=== PATIENT | male | born 1955 ===

== ENCOUNTER 2016-11-21 19:09 | Emergency (ER) | payer BC ==
[2016-11-21] MEDS ORDERED: Dextrose 50% SYRINGE Inj (50 ml) ONE (19:38)
--- NOTE | 2016-11-21 19:48 | C.PDOC ---
History Of Present Illness A 61 y/o male with a Hx of chronic alcoholism, was brought in by family c/o pt feeling weakness due to ETOH, Xanax, and Percocet intake with slurred speech that began tonight. Pt notes his last drug use was tonight. Pt denies pain, fever, chills, nausea, vomiting, diarrhea, chest pain, SOB, diaphoresis, LOC, dizziness, suicidal, or homicidal ideation. Time Seen by Provider: 11/21/16 19:49 Chief Complaint (Nursing): Weakness/Neurological Deficit History Per: Patient, Family History/Exam Limitations: intoxication Onset/Duration Of Symptoms: Hrs Current Symptoms Are (Timing): Still Present Fall Associated With With Symptoms: No Severity: Mild Recent travel outside of the [place]: No Additional History Per: Patient Past Medical History Reviewed: Historical Data, Nursing Documentation, Vital Signs Vital Signs: Last Vital Signs Temp 97.5 F L 11/21/16 19:44 Pulse 106 H 11/21/16 21:31 Resp 12 11/21/16 21:31 BP 163/94 H 11/21/16 21:31 Pulse Ox 95 11/21/16 21:31 Family History: States: Unknown Family Hx Review Of Systems Except As Marked, All Systems Reviewed And Found Negative. Constitutional: Positive for: Weakness, Other ( ETOH, Xanax, and percocet use. Denies pain). Negative for: Fever, Chills, Sweats Cardiovascular: Negative for: Chest Pain, Palpitations Respiratory: Negative for: Shortness of Breath Gastrointestinal: Negative for: Nausea, Vomiting, Diarrhea Neurological: Negative for: Dizziness, Other (LOC) Psych: Negative for: Suicidal ideation, Other (Homicidal ideation) Physical Exam - Physical Exam Appears: Non-toxic, No Acute Distress, Other (Alert and concious) Skin: Warm, Dry Head: Atraumatic, Normacephalic Eye(s): bilateral: Normal Inspection Chest: Symmetrical Cardiovascular: Rhythm Regular, No Murmur Respiratory: Normal Breath Sounds, No Accessory Muscle Use, No Rales, No Rhonchi , No Wheezing Gastrointestinal/Abdominal: Soft, No Tenderness Back: Normal Inspection, No CVA Tenderness Neurological/Psych: No Normal Speech (Slightly slurred speech), Normal Motor, Normal Sensation, Other (No focal deficit) ED Course And Treatment - Laboratory Results Result Diagrams: 11/21/16 20:00 11/21/16 20:00 ECG: Interpreted By Me, Viewed By Me ECG Rhythm: Sinus Tachycardia, Nonspecific Changes ECG Interpretation: No Acute Changes, Abnormal Interpretation Of ECG: Sinus tachycardia, non-spc ST-T changes Rate From EC - Radiology CXR: Interpreted by Me, Viewed By Me CXR Interpretation: Yes: No Acute Disease, Other (normal chest film). No: Infiltrates, Cardiomegaly - CT Scan/US CT Head w/o contrast Other Rad Studies (CT/US): Interpreted By Me, Read By Radiologist CT/US Interpretation: EXAM: CT Head Without Intravenous Contrast. CLINICAL HISTORY: 61 years old, male; Signs and symptoms; Weakness, facial. TECHNIQUE: Axial computed tomography images of the head/brain without intravenous contrast. This CT exam. was performed using one or more of the following dose reduction techniques: automated exposure. control, adjustment of the mA and/or kV according to patient size, and/or use of iterative. reconstruction technique. EXAM DATE/TIME: Exam ordered 11/21/2016 8:05 PM. COMPARISON: No relevant prior studies available. FINDINGS: Brain: A thin calcification is noted over a left temporal gyrus. This is nonspecific and could be related. to previous granulomatous disease. No hemorrhage. No significant white matter disease. No. edema. Ventricles: Unremarkable. No ventriculomegaly. Bones/ joints: Unremarkable. No acute fracture. Soft tissues: Unremarkable. Sinuses: Mucosal thickening is noted within the right maxillary sinus. Mastoid air cells : Unremarkable as visualized. No mastoid effusion. IMPRESSION: 1. No acute findings in the brain. 2. Mucosal thickening within the right maxillary sinus. Progress Note: Patient initial bld. glucose was 59mg %, D50 given by Iv. Medical Decision Making Medical Decision Making: Impression: A 61 y/o male brought in by family c/o pt feeling weakness due to ETOH, Xanax, and Percocet intake with slurred speech that began tonight. Plans: EKG Blood labs UA Reassess Disposition Counseled Patient/Family Regarding: Diagnosis - Disposition Referrals: [facility] [Outside] Disposition Time: 22:00 Condition: STABLE Instructions: Non-diabetic Hypoglycemia (ED), Alcohol Intoxication (GEN), Abuse of Alcohol (ED) - POA Present On Arrival: None - Clinical Impression Clinical Impression: Alcohol intoxication, Hypoglycemia - Scribe Statement The provider has reviewed the documentation as recorded by the Eduardoibgm torres Provider Attestation: All medical record entries made by the Eduardoibgm were at my direction and personally dictated by me. I have reviewed the chart and agree that the record accurately reflects my personal performance of the history, physical exam, medical decision making, and the department course for this patient. I have also personally directed, reviewed, and agree with the discharge instructions and disposition.
[2016-11-21 19:50] VITALS: RESP 12; TEMP 97.5
[2016-11-21] MEDS ORDERED: Dextrose 50% SYRINGE Inj (50 ml) IV STA (19:53)
[2016-11-21] MEDS ORDERED: Folic Acid 1 MG, Thiamine 100 MG, Multivitamin (MVI) 10 ML in Dextrose 5% In Water 1,00... IV SCH ×2 (20:00→20:15)
[2016-11-21 20:11] LABS: BASO # 0.1 K/uL (0.0-0.2); BASO % 0.8 % (0.0-2.0); EOS % 0.1 % (0.0-4.0); HEMATOCRIT 40.7 % (35.0-51.0); LYMPH % 24.5 % (20.0-40.0); MEAN CELL VOLUME 89.2 fL (80.0-94.0); MEAN CORPUSCULAR HEMOGLOBIN 29.1 pg (27.0-31.0); MEAN CORPUSCULAR HGB CONC 32.6 g/dL (33.0-37.0); MEAN PLATELET VOLUME 7.4 fL (7.2-11.7); MONO # 0.5 K/uL (0.0-0.8); MONO % 6.1 % (0.0-10.0); NRBC % 0.1 % (0.0-2.0); RED CELL DISTRIBUTION WIDTH 22.3 % (11.5-14.5)
[2016-11-21 20:17] LABS: CHLORIDE 99 mmol/L (98-107)
[2016-11-21 20:18] LABS: SODIUM 137 mmol/L (132-148)
[2016-11-21 20:19] LABS: POTASSIUM 4.1 mmol/L (3.6-5.2)
[2016-11-21 20:20] LABS: BILIRUBIN,TOTAL 1.4 mg/dL (0.2-1.3); GFR AFRICAN-AMERICAN > 60
[2016-11-21 20:21] LABS: ALB/GLOB RATIO 1.4 (1.0-2.1); ALKALINE PHOSPHATASE 200 U/L (38-126); ALT/SGPT 99 U/L (21-72); AST/SGOT 197 U/L (17-59); BLOOD UREA NITROGEN 11 mg/dL (9-20); CALCIUM 8.2 mg/dl (8.6-10.4); CARBON DIOXIDE 15 mmol/L (22-30); GLUCOSE,RANDOM 69 mg/dL (75-110); TOTAL PROTEIN 7.3 g/dL (6.3-8.3)
[2016-11-21 20:22] LABS: ALCOHOL SERUM 289 mg/dl (0-10)
[2016-11-21 20:27] LABS: RBC URINE 3 /hpf (0-3); URINE BILIRUBIN NEGATIVE (NEGATIVE); URINE BLOOD 1+ (NEGATIVE); URINE GLUCOSE (UA) 3+ mg/dL (Normal); URINE KETONE 2+ mg/dL (NEGATIVE); URINE LEUKOCYTE ESTERASE NEG Leu/uL (Negative); URINE PROTEIN 1+ mg/dL (NEGATIVE); WBC URINE 1 /hpf (0-5)
[2016-11-21 20:29] LABS: URINE COLOR YELLOW (YELLOW)
--- NOTE | 2016-11-21 21:31 | CT ---
EXAM: CT Head Without Intravenous Contrast CLINICAL HISTORY: 61 years old, male; Signs and symptoms; Weakness, facial TECHNIQUE: Axial computed tomography images of the head/brain without intravenous contrast. This CT exam was performed using one or more of the following dose reduction techniques: automated exposure control, adjustment of the mA and/or kV according to patient size, and/or use of iterative reconstruction technique. EXAM DATE/TIME: Exam ordered 11/21/2016 8:05 PM COMPARISON: No relevant prior studies available. FINDINGS: Brain: A thin calcification is noted over a left temporal gyrus. This is nonspecific and could be related to previous granulomatous disease. No hemorrhage. No significant white matter disease. No edema. Ventricles: Unremarkable. No ventriculomegaly. Bones/joints: Unremarkable. No acute fracture. Soft tissues: Unremarkable. Sinuses: Mucosal thickening is noted within the right maxillary sinus. Mastoid air cells: Unremarkable as visualized. No mastoid effusion. IMPRESSION: 1. No acute findings in the brain. 2. Mucosal thickening within the right maxillary sinus.
[2016-11-21 21:33] VITALS: BP 163/94; PULSE 106; O2SAT 95
--- NOTE | 2016-11-22 09:14 | RAD ---
HISTORY: weakness COMPARISON: No prior. TECHNIQUE: Chest PA and lateral FINDINGS: LUNGS: Hyperinflation suggestive for COPD and or emphysematous changes. Biapical pleural thickening with upper lobe granulomatous changes. Bilateral hilar prominence. Patchy increased markings in the right infrahilar region which may represent underlying atelectasis and or infiltrate. More linear atelectasis at the right lung base. PLEURA: As above. CARDIOVASCULAR: Mild cardiomegaly. OSSEOUS STRUCTURES: Degenerative changes in the spine and shoulders. VISUALIZED UPPER ABDOMEN: Normal. OTHER FINDINGS: None. IMPRESSION: Hyperinflation suggestive for COPD and or emphysematous changes. Biapical pleural thickening with upper lobe granulomatous changes. Bilateral hilar prominence. Patchy increased markings in the right infrahilar region which may represent underlying atelectasis and or infiltrate. More linear atelectasis at the right lung base.
--- NOTE | 2016-11-22 19:22 | CARD ---
APPROVED REPORT EKG Measurement Heart [id number] <Conclusion> Sinus tachycardia Low voltage QRS Nonspecific ST and T wave abnormality Abnormal ECG
== END 2016-11-21 21:59 | disposition home or self-care (01) ==
LOC: C.ER 19:09
DX: F10.220 Alcohol dependence with intoxication, uncomplicated (principal); F19.10 Other psychoactive substance abuse, uncomplicated; Y90.8 Blood alcohol level of 240 mg/100 ml or more; E16.2 Hypoglycemia, unspecified
CPT/HCPCS: 70450; 71020; 80053; 81001; 82948; 84484; 85025; 93005; 96360; 99285; G0480; J3411; J7070

== ENCOUNTER 2017-09-05 16:36 | Inpatient (IN) | payer BC ==
[2017-09-05] MEDS ORDERED: Albuterol-Ipratrop 3 mg / 0.5 (3 ml) UD IH STA (17:12)
[2017-09-05 17:41] LABS: BASO # 0.1 K/uL (0.0-0.2); BASO % 1.1 % (0.0-2.0); EOS # 0.1 K/uL (0.0-0.7); EOS % 0.8 % (0.0-4.0); HEMOGLOBIN 11.5 g/dL (12.0-18.0); LYMPH # 1.7 K/uL (1.0-4.3); LYMPH % 16.7 % (20.0-40.0); MEAN CORPUSCULAR HEMOGLOBIN 24.3 pg (27.0-31.0); MEAN CORPUSCULAR HGB CONC 31.9 g/dL (33.0-37.0); MEAN PLATELET VOLUME 7.2 fL (7.2-11.7); MONO # 0.8 K/uL (0.0-0.8); MONO % 7.6 % (0.0-10.0); NEUT # 7.5 K/uL (1.8-7.0); NEUT % 73.8 % (50.0-75.0); RBC 4.73 Mil/uL (4.40-5.90); RED CELL DISTRIBUTION WIDTH 17.7 % (11.5-14.5); WHITE BLOOD COUNT 10.2 K/uL (4.8-10.8)
[2017-09-05] MEDS ORDERED: Albuterol-Ipratrop 3 mg / 0.5 (3 ml) UD ONE (17:49)
[2017-09-05 17:53] LABS: ALB/GLOB RATIO 1.1 (1.0-2.1); ALBUMIN 3.9 g/dL (3.5-5.0); ALT/SGPT 72 U/L (21-72); AST/SGOT 61 U/L (17-59); BLOOD UREA NITROGEN 13 mg/dL (9-20); CALCIUM 8.7 mg/dl (8.6-10.4); GFR AFRICAN-AMERICAN > 60; GFR NON-AFRICAN AMERICAN > 60
[2017-09-05 17:54] LABS: MEAN CELL VOLUME 76.2 fL (80.0-94.0)
[2017-09-05 18:07] LABS: B-TYPE NATRIURETIC PEPTIDE 63.3 pg/mL (0-900)
--- NOTE | 2017-09-05 18:24 | RAD ---
HISTORY: SOB, cough COMPARISON: Chest radiograph 11/21/2016. TECHNIQUE: Chest PA and lateral FINDINGS: LUNGS: No active pulmonary disease right lung. Underlying compression atelectasis or infiltrate is not excluded at the left lung. PLEURA: There is a massive left pleural effusion opacifying the majority of the left hemithorax except for the immediate left apex. No pneumothorax bilaterally or right pleural effusion. CARDIOVASCULAR: Obscured by left pleural effusion. OSSEOUS STRUCTURES: No significant abnormalities. VISUALIZED UPPER ABDOMEN: Normal. OTHER FINDINGS: None. IMPRESSION: Massive left pleural effusion is identified with underlying atelectasis or infiltrate not excluded. Unremarkable right hemithorax.
[2017-09-05] MEDS ORDERED: Azithromycin 500mg/250ML NS 500 MG/250 ML BAG IVPB STA (18:39)
[2017-09-05] MEDS ORDERED: cefTRIAXone IV 1 gm in Dextros 50 ML IVPB STA (18:39)
--- NOTE | 2017-09-05 19:00 | C.PDOC ---
Time Seen by Provider: 09/05/17 17:02 Chief Complaint (Nursing): Shortness Of Breath History Per: Patient Onset/Duration Of Symptoms: Days (weeks) Current Symptoms Are (Timing): Worse Exacerbating Factor(s): Exertion Current Respiratory Medications: See Home Med List Severity: Moderate Associated Symptoms: Productive Cough Reports Recently: Treated By A Physician Additional History Per: Prior Records Past Medical History Reviewed: Historical Data, Nursing Documentation, Vital Signs Vital Signs: Last Vital Signs Temp 97.9 F 09/05/17 16:45 Pulse 102 H 09/05/17 16:45 Resp 24 09/05/17 17:51 BP 160/102 H 09/05/17 16:45 Pulse Ox 96 09/05/17 16:45 - Medical History PMH: Back Problems (slipped disc), COPD Family History: States: Unknown Family Hx - Social History Hx Tobacco Use: Yes Hx Alcohol Use: Yes Hx Substance Use: No - Immunization History Hx Tetanus Toxoid Vaccination: No Hx Influenza Vaccination: No Hx Pneumococcal Vaccination: No Review Of Systems Except As Marked, All Systems Reviewed And Found Negative. Constitutional: Negative for: Fever Respiratory: Positive for: Cough, Shortness of Breath, SOB with Excertion. Negative for: Hemoptysis Gastrointestinal: Negative for: Vomiting, Abdominal Pain Musculoskeletal: Negative for: Neck Pain Skin: Negative for: Rash Neurological: Negative for: Weakness, Numbness Physical Exam - Physical Exam Appears: Non-toxic, No Acute Distress Skin: Normal Color, Warm, Dry, No Rash Head: Atraumatic, Normacephalic Eye(s): bilateral: Normal Inspection, PERRL, EOMI Neck: Normal ROM, Supple Cardiovascular: Rhythm Regular Respiratory: Decreased Breath Sounds (on left side), No Accessory Muscle Use Gastrointestinal/Abdominal: Soft, No Tenderness Extremity: Normal ROM, No Pedal Edema, No Calf Tenderness Neurological/Psych: Oriented x3, Normal Speech, Normal Motor, Normal Sensation ED Course And Treatment - Laboratory Results Result Diagrams: 09/05/17 17:34 09/05/17 17:34 Lab Interpretation: No Acute Changes ECG: Interpreted By Me, Viewed By Me ECG Rhythm: Sinus Rhythm, Nonspecific Changes ECG Interpretation: No Acute Changes Rate From EC O2 Sat by Pulse Oximetry: 96 Pulse Ox Interpretation: Normal - Radiology CXR: Viewed By Me, Read By Radiologist CXR Interpretation: Yes: Other (Large left sided pleural effusion) Progress - Interventions Interventions:: Observation, Oxygen - Medications Administered Inhaled nebulized: Anticholinergic, Beta-2 agonist Intravenous: Corticosteroid - Data Reviewed Data Reviewed: Lab, Diagnostic imaging, EKG, Old records - Patient Status Patient status: Unchanged - Continuity of Care Discussed patient case with:: Patient, ED Nurse, On-call PMD-pt unassigned - Patient Plan Patient Plan: Admission Disposition Discussed With DrTy: Cadence Galindo Comment: He accepted pt on his service. Doctor Will See Patient In The: Hospital Counseled Patient/Family Regarding: Studies Performed, Diagnosis, Smoking Cessation - Disposition Disposition: HOSPITALIZED Disposition Time: 19:02 Condition: SERIOUS - Clinical Impression Clinical Impression: Pleural effusion on left, Dyspnea
--- NOTE | 2017-09-05 21:39 | CP.PCM.HP ---
Past Patient History - Past Social History Smoking Status: Heavy Smoker > 10 Cigarettes Daily - PULMONARY Hx Chronic Obstructive Pulmonary Disease (COPD): Yes - PSYCHIATRIC Hx Substance Use: No - SURGICAL HISTORY Hx Surgeries: Yes Hx Orthopedic Surgery: Yes (Lt elbow) - ANESTHESIA Hx Anesthesia: Yes Hx Anesthesia Reactions: No Meds Allergies/Adverse Reactions: Allergies Allergy/AdvReac Type Severity Reaction Status Date / Time No Known Allergies Allergy Verified 09/05/17 16:49 Physical Exam - Constitutional Appears: Well - Head Exam Head Exam: ATRAUMATIC, NORMAL INSPECTION, NORMOCEPHALIC - Eye Exam Eye Exam: EOMI, Normal appearance, PERRL Pupil Exam: NORMAL ACCOMODATION, PERRL - ENT Exam ENT Exam: Mucous Membranes Moist, Normal Exam - Neck Exam Neck exam: Positive for: Normal Inspection - Respiratory Exam Respiratory Exam: Decreased Breath Sounds - Cardiovascular Exam Cardiovascular Exam: REGULAR RHYTHM, +S1, +S2 - GI/Abdominal Exam GI & Abdominal Exam: Diminished Bowel Sounds, Soft - Rectal Exam Rectal Exam: Deferred Results - Vital Signs Recent Vital Signs: Last Vital Signs Temp 97.9 F 09/05/17 16:45 Pulse 102 H 09/05/17 16:45 Resp 24 09/05/17 17:51 BP 160/102 H 09/05/17 16:45 Pulse Ox 96 09/05/17 19:02 - Labs Result Diagrams: 09/05/17 17:34 09/05/17 17:34 Labs: Laboratory Results - last 24 hr 09/05/17 09/05/17 17:34 17:34 WBC 10.2 RBC 4.73 Hgb 11.5 L Hct 36.1 MCV 76.2 L D MCH 24.3 L MCHC 31.9 L RDW 17.7 H Plt Count 469 H D MPV 7.2 Neut % (Auto) 73.8 Lymph % (Auto) 16.7 L [place] % (Auto) 7.6 Eos % (Auto) 0.8 Baso % (Auto) 1.1 Neut # (Auto) 7.5 H Lymph # (Auto) 1.7 [place] # (Auto) 0.8 Eos # (Auto) 0.1 Baso # (Auto) 0.1 Sodium 138 Potassium 4.0 Chloride 100 Carbon Dioxide 24 Anion Gap 19 BUN 13 Creatinine 0.8 Est GFR ( Amer) > 60 Est GFR (Non-Af Amer) > 60 Random Glucose 103 Calcium 8.7 Total Bilirubin 0.6 AST 61 H ALT 72 D Alkaline Phosphatase 118 Troponin I < 0.0120 NT-Pro-B Natriuret Pep 63.3 Total Protein 7.5 Albumin 3.9 Globulin 3.6 Albumin/Globulin Ratio 1.1
[2017-09-05] MEDS ORDERED: PERCOCET PO SCH (22:00)
[2017-09-05] MEDS: MethylPREDNISolone 40 mg Vial IVP SCH (22:11)
[2017-09-05] MEDS ORDERED: cefTRIAXone IV 1 gm in Dextros 50 ML IVPB ONE (22:13)
[2017-09-05] MEDS ORDERED: MethylPREDNISolone 40 mg Vial ONE (22:15)
--- NOTE | 2017-09-05 23:11 | CT ---
EXAM: CT Chest Without Intravenous Contrast EXAM DATE/TIME: 09/05/2017 9:38 PM CLINICAL HISTORY: 61 years old, male; Condition or disease; Lung condition and disease; Pleural effusion; Other: Unknown; Additional info: Large left pleural effusion TECHNIQUE: Axial computed tomography images of the chest without intravenous contrast. All CT scans at this facility use one or more dose reduction techniques, viz.: automated exposure control; ma/kV adjustment per patient size (including targeted exams where dose is matched to indication; i.e. head); or iterative reconstruction technique. Coronal and sagittal reformatted images were created and reviewed. COMPARISON: No relevant prior studies available. FINDINGS: There is a large left pleural effusion some of which has a rounded configuration raising the possibility of partial loculation. There is consolidation along the medial left lung with only a small amount of normally aerated lung present in the upper and lower lobes. Intraluminal material is present in the left main bronchi on coronal images 78-79 as well as more distally, presumably the etiology of the consolidation/atelectasis. Bronchoscopy could be performed for further evaluation. No aortic aneurysm. Minimal platelike atelectasis right upper lung. Emphysematous changes are present. There is left adrenal gland thickening. Trace bilateral nonspecific perinephric stranding. IMPRESSION: Large left pleural effusion. Consolidation/atelectasis in the left lung with endobronchial material in the left main bronchi as well as in the distal bronchioles, presumably the etiology. Bronchoscopy recommended for further evaluation.
[2017-09-06] MEDS: Albuterol-Ipratrop 3 mg / 0.5 (3 ml) UD INH SCH ×4 (05:56→19:05)
[2017-09-06] MEDS: MethylPREDNISolone 40 mg Vial IVP SCH ×3 (06:05→22:59)
[2017-09-06] MEDS ORDERED: Oxycodone/Acetaminophen 5/325 mg Tab PO PRN ×2 (09:30→15:00)
[2017-09-06 11:16] LABS: PROTHROMBIN TIME 11.7 SECONDS (9.7-12.2)
--- NOTE | 2017-09-06 12:16 | PCM.SURG1 ---
Surgeon's Initial Post Op Note - Surgeon's Notes Surgeon: Kenny Rosado MD Limited Radiology Technician: None Type of Anesthesia: Local Pre-Operative Diagnosis: sob, pleural effusion Operative Findings: large left pleural effusion. 8.5 palauan pigtail chest tube placed in left pleural space Post-Operative Diagnosis: same Operation Performed: US guided left pigtail chest tube insertion Specimen/Specimens Removed: 60 cc serosanguinous (dark red) fluid Estimated Blood Loss: EBL {In ML}: 3 Date of Surgery/Procedure: 09/06/17 Time of Surgery/Procedure: 12:16
[2017-09-06] MEDS ORDERED: Morphine 4 MG/ML VIAL IVP ONE ×2 (12:48→19:30)
[2017-09-06 14:20] LABS: BODY FLUID TYPE PLEURAL
[2017-09-06] MEDS ORDERED: cefTRIAXone IV 1 gm in Dextros 1 GM in Dextrose 5% In Water 50 ML IVPB ONE (15:00)
--- NOTE | 2017-09-06 15:29 | CP.PCM.CON ---
History of Present Illness - History of Present Illness History of Present Illness: Reason for consult: Large Pleural effusion 61M with PMHx of alcoholism presented to the ED yesterday with shortness of breath and cough x 4 months with worsening over the last 3 weeks. He reports he cannot walk a block without getting winded. He denies any past medical history, recent travel or positive TB test results. During the interview the patient had an elevated respiratory rate and appeared to have difficult speaking full sentences. PMHx: denies PSH: denies PHosp: seen once for weakness and slurred speech, hypoglycemia Allergies: NKDA SH: current smoker, past alcohol use Review of Systems - Review of Systems All systems: reviewed and no additional remarkable complaints except ( complaining of shortness of breath) Past Patient History - Past Medical History & Family History Past Medical History?: Yes - Past Social History Smoking Status: Heavy Smoker > 10 Cigarettes Daily - CARDIAC Hx Cardiac Disorders: No - PULMONARY Hx Respiratory Disorders: Yes Hx Chronic Obstructive Pulmonary Disease (COPD): Yes - NEUROLOGICAL Hx Neurological Disorder: No - HEENT Hx HEENT Problems: No - RENAL Hx Chronic Kidney Disease: No - ENDOCRINE/METABOLIC Hx Endocrine Disorders: No - HEMATOLOGICAL/ONCOLOGICAL Hx Blood Disorders: No - INTEGUMENTARY Hx Dermatological Problems: No - MUSCULOSKELETAL/RHEUMATOLOGICAL Hx Musculoskeletal Disorders: No Hx Falls: No - GASTROINTESTINAL Hx Gastrointestinal Disorders: No - GENITOURINARY/GYNECOLOGICAL Hx Genitourinary Disorders: No - PSYCHIATRIC Hx Psychophysiologic Disorder: No Hx Substance Use: No - SURGICAL HISTORY Hx Surgeries: Yes Hx Orthopedic Surgery: Yes (Lt elbow) - ANESTHESIA Hx Anesthesia: Yes Hx Anesthesia Reactions: No Meds Allergies/Adverse Reactions: Allergies Allergy/AdvReac Type Severity Reaction Status Date / Time No Known Allergies Allergy Verified 09/05/17 16:49 - Medications Medications: Current Medications Albuterol/Ipratropium (Duoneb 3 Mg/0.5 Mg (3 Ml) Ud) 3 ml INH RQ6 [facility] Last Admin: 09/06/17 13:19 Dose: 3 ml Alprazolam (Xanax) 1 mg PO DAILY [facility] Last Admin: 09/06/17 10:42 Dose: 1 mg Enoxaparin Sodium (Lovenox) 40 mg SC DAILY [facility] Ceftriaxone Sodium 1 gm/ (Sodium Chloride) 100 mls @ 100 mls/hr IVPB Q24H ASHLEE PRN Reason: Protocol Last Admin: 09/05/17 22:11 Dose: 100 mls/hr Azithromycin 500 mg/ Sodium (Chloride) 250 mls @ 167 mls/hr IVPB Q24H ASHLEE PRN Reason: Protocol Methylprednisolone (Solu-Medrol) 40 mg IVP Q8 ASHLEE Last Admin: 09/06/17 06:05 Dose: 40 mg Oxycodone/Acetaminophen (Percocet 5/325 Mg Tab) 2 tab PO Q6H PRN PRN Reason: Pain, severe (8-10) Stop: 09/09/17 09:31 Pneumococcal Polyvalent Vaccine (Pneumovax 23 Vaccine) 0.5 ml IM .ONCE ONE Stop: 09/08/17 14:01 Physical Exam - Head Exam Head Exam: ATRAUMATIC, NORMOCEPHALIC - Eye Exam Eye Exam: Normal appearance - ENT Exam ENT Exam: Mucous Membranes Moist - Neck Exam Neck exam: Positive for: Normal Inspection - Respiratory Exam Respiratory Exam: Decreased Breath Sounds - Cardiovascular Exam Cardiovascular Exam: REGULAR RHYTHM - GI/Abdominal Exam GI & Abdominal Exam: Normal Bowel Sounds, Soft - Extremities Exam Extremities exam: Positive for: normal inspection Results - Vital Signs Recent Vital Signs: Last Vital Signs Temp 98.1 F 09/06/17 12:45 Pulse 84 09/06/17 12:45 Resp 20 09/06/17 12:45 BP 125/81 09/06/17 13:30 Pulse Ox 95 09/06/17 12:45 - Labs Result Diagrams: 09/05/17 17:34 09/05/17 17:34 Labs: Laboratory Results - last 24 hr 09/05/17 09/05/17 09/06/17 17:34 17:34 11:07 WBC 10.2 RBC 4.73 Hgb 11.5 L Hct 36.1 MCV 76.2 L D MCH 24.3 L MCHC 31.9 L RDW 17.7 H Plt Count 469 H D MPV 7.2 Neut % (Auto) 73.8 Lymph % (Auto) 16.7 L [place] % (Auto) 7.6 Eos % (Auto) 0.8 Baso % (Auto) 1.1 Neut # (Auto) 7.5 H Lymph # (Auto) 1.7 [place] # (Auto) 0.8 Eos # (Auto) 0.1 Baso # (Auto) 0.1 PT 11.7 INR 1.0 Sodium 138 Potassium 4.0 Chloride 100 Carbon Dioxide 24 Anion Gap 19 BUN 13 Creatinine 0.8 Est GFR ( Amer) > 60 Est GFR (Non-Af Amer) > 60 Random Glucose 103 Calcium 8.7 Total Bilirubin 0.6 AST 61 H ALT 72 D Alkaline Phosphatase 118 Troponin I < 0.0120 NT-Pro-B Natriuret Pep 63.3 Total Protein 7.5 Albumin 3.9 Globulin 3.6 Albumin/Globulin Ratio 1.1 Fluid Source 09/06/17 14:19 WBC RBC Hgb Hct MCV MCH MCHC RDW Plt Count MPV Neut % (Auto) Lymph % (Auto) [place] % (Auto) Eos % (Auto) Baso % (Auto) Neut # (Auto) Lymph # (Auto) [place] # (Auto) Eos # (Auto) Baso # (Auto) PT INR Sodium Potassium Chloride Carbon Dioxide Anion Gap BUN Creatinine Est GFR ( Amer) Est GFR (Non-Af Amer) Random Glucose Calcium Total Bilirubin AST ALT Alkaline Phosphatase Troponin I NT-Pro-B Natriuret Pep Total Protein Albumin Globulin Albumin/Globulin Ratio Fluid Source Pleural Assessment & Plan (1) Dyspnea Status: Acute (2) Pleural effusion on left Status: Acute - Assessment and Plan (Free Text) Assessment: Assessment and Plan: 1. Pleural effusion - CXR 4/5: Massive left pleural effusion, cannot exclude underlying atelectasis or infiltrate - CT Chest 4/5: Large left pleural effusion with consolidation/atelectacsis in left lung with endobronchial material in the left main bronchus and distal bronchioles - status post pigtail catheter insertion by IR 2. Dyspnea on exertion likely secondary to large pleural effusion - HR 102-75 - 95% O2 sat on 3L NC - duonebs - IV abx
[2017-09-06] MEDS ORDERED: Azithromycin 500 MG in Sodium Chloride 0.9% 250 ML IVPB ONE (16:00)
[2017-09-06 16:36] LABS: BF GROSS APPEARANCE BLOODY (CLEAR); BODY FLUID MONO/MACROPHAGE 4 % (0-0)
[2017-09-06] MEDS: Oxycodone/Acetaminophen 5/325 mg Tab PO PRN (17:24)
--- NOTE | 2017-09-06 17:58 | CP.PCM.PN ---
Subjective - Date & Time of Evaluation Date of Evaluation: 09/06/17 Time of Evaluation: 13:00 - Subjective Subjective: clinically same Objective - Vital Signs/Intake and Output Vital Signs (last 24 hours): Temp Pulse Resp BP Pulse Ox 98.0 F 92 H 20 117/79 96 09/06/17 15:44 09/06/17 15:44 09/06/17 15:44 09/06/17 15:44 09/06/17 15:44 Intake and Output: 09/06/17 09/06/17 06:59 18:59 Intake Total 480 Output Total 2740 Balance -2260 - Medications Medications: Current Medications Albuterol/Ipratropium (Duoneb 3 Mg/0.5 Mg (3 Ml) Ud) 3 ml INH RQ6 [facility] Last Admin: 09/06/17 13:19 Dose: 3 ml Alprazolam (Xanax) 1 mg PO DAILY [facility] Last Admin: 09/06/17 10:42 Dose: 1 mg Enoxaparin Sodium (Lovenox) 40 mg SC DAILY [facility] Ceftriaxone Sodium 1 gm/ (Sodium Chloride) 100 mls @ 100 mls/hr IVPB Q24H ASHLEE PRN Reason: Protocol Last Admin: 09/05/17 22:11 Dose: 100 mls/hr Azithromycin 500 mg/ Sodium (Chloride) 250 mls @ 167 mls/hr IVPB Q24H ASHLEE PRN Reason: Protocol Methylprednisolone (Solu-Medrol) 40 mg IVP Q8 [facility] Last Admin: 09/06/17 15:41 Dose: 40 mg Oxycodone/Acetaminophen (Percocet 5/325 Mg Tab) 2 tab PO Q6H PRN PRN Reason: Pain, severe (8-10) Stop: 09/09/17 09:31 Last Admin: 09/06/17 17:24 Dose: 2 tab Pneumococcal Polyvalent Vaccine (Pneumovax 23 Vaccine) 0.5 ml IM .ONCE ONE Stop: 09/08/17 14:01 - Labs Labs: 09/05/17 17:34 09/05/17 17:34 PT 11.7 SECONDS (9.7-12.2) 09/06/17 11:07 INR 1.0 09/06/17 11:07 - Constitutional Appears: Well - Head Exam Head Exam: ATRAUMATIC, NORMAL INSPECTION, NORMOCEPHALIC - Eye Exam Eye Exam: EOMI, Normal appearance, PERRL Pupil Exam: NORMAL ACCOMODATION, PERRL - ENT Exam ENT Exam: Mucous Membranes Moist, Normal Exam - Neck Exam Neck Exam: Full ROM, Normal Inspection. absent: Lymphadenopathy - Respiratory Exam Respiratory Exam: Decreased Breath Sounds - Cardiovascular Exam Cardiovascular Exam: REGULAR RHYTHM, +S1, +S2 - GI/Abdominal Exam GI & Abdominal Exam: Soft, Diminished Bowel Sounds - Rectal Exam Rectal Exam: Deferred
[2017-09-06] MEDS: Azithromycin 500 MG in Sodium Chloride 0.9% 250 ML IVPB SCH (19:42)
--- NOTE | 2017-09-06 22:27 | CARD ---
APPROVED REPORT EKG Measurement Heart [id number] <Conclusion> Normal sinus rhythm Nonspecific T wave abnormality Abnormal ECG
[2017-09-06] MEDS: Enoxaparin 40 mg Syringe SC SCH (22:53)
[2017-09-07] MEDS: Albuterol-Ipratrop 3 mg / 0.5 (3 ml) UD INH SCH ×4 (01:21→19:29)
[2017-09-07] MEDS: Oxycodone/Acetaminophen 5/325 mg Tab PO PRN ×3 (01:40→17:41)
[2017-09-07] MEDS: MethylPREDNISolone 40 mg Vial IVP SCH ×3 (05:30→21:47)
[2017-09-07 06:54] LABS: ALBUMIN 3.3 g/dL (3.5-5.0); ALT/SGPT 69 U/L (21-72); AST/SGOT 33 U/L (17-59); BLOOD UREA NITROGEN 13 mg/dL (9-20); CALCIUM 8.9 mg/dl (8.6-10.4); GFR AFRICAN-AMERICAN > 60; GFR NON-AFRICAN AMERICAN > 60
[2017-09-07 07:11] LABS: BASO % 0.1 % (0.0-2.0); HEMOGLOBIN 11.4 g/dL (12.0-18.0); LYMPH # 1.1 K/uL (1.0-4.3); LYMPH % 7.6 % (20.0-40.0); MEAN CELL VOLUME 77.6 fL (80.0-94.0); MEAN CORPUSCULAR HEMOGLOBIN 24.7 pg (27.0-31.0); MEAN CORPUSCULAR HGB CONC 31.9 g/dL (33.0-37.0); MEAN PLATELET VOLUME 7.7 fL (7.2-11.7); MONO # 0.6 K/uL (0.0-0.8); MONO % 3.9 % (0.0-10.0); NEUT # 12.6 K/uL (1.8-7.0); NEUT % 88.4 % (50.0-75.0); PLATELET COUNT 450 K/uL (130-400); RBC 4.63 Mil/uL (4.40-5.90); RED CELL DISTRIBUTION WIDTH 17.6 % (11.5-14.5); WHITE BLOOD COUNT 14.3 K/uL (4.8-10.8)
--- NOTE | 2017-09-07 08:36 | RAD ---
Chest x-ray single frontal view History: Pleural effusion. Comparison: 09/05/2017 Findings: Left-sided pleural drain/pigtail catheter in place. Interval decrease in a now small to moderate left pleural effusion. Moderate venous congestion. Consolidative changes in the left mid to lower lung zone. Small nodular density at the lateral aspect of the right lung base. Bilateral hilar prominence. Mild cardiomegaly. Degenerative changes in the spine and shoulders. Impression: Left-sided pleural drain/pigtail catheter in place. Interval decrease in a now small to moderate left pleural effusion. Moderate venous congestion. Consolidative changes in the left mid to lower lung zone. Small nodular density at the lateral aspect of the right lung base. Bilateral hilar prominence. Mild cardiomegaly.
[2017-09-07 08:48] LABS: ANISOCYTOSIS SLIGHT; LYMPHOCYTE 4 % (20-40); MONOCYTE 5 % (0-10); NEUTROPHIL 91 % (50-75); PLATELET ESTIMATE SLIGHTLY INCREASED (NORMAL); TOTAL CELLS COUNTED 100
[2017-09-07 08:49] LABS: HYPOCHROMIC SLIGHT; LARGE PLATELETS PRESENT; MICROCYTOSIS SLIGHT; POLYCHROMIC SLIGHT; TOXIC GRANULATION PRESENT
[2017-09-07] MEDS: Enoxaparin 40 mg Syringe SC SCH (09:00)
--- NOTE | 2017-09-07 18:16 | CP.PCM.PN ---
Subjective - Date & Time of Evaluation Date of Evaluation: 09/07/17 Time of Evaluation: 13:00 - Subjective Subjective: clinically same Objective - Vital Signs/Intake and Output Vital Signs (last 24 hours): Temp Pulse Resp BP Pulse Ox 98.2 F 96 H 21 125/77 96 09/07/17 15:00 09/07/17 15:00 09/07/17 15:00 09/07/17 15:00 09/07/17 15:00 Intake and Output: 09/07/17 09/07/17 06:59 18:59 Intake Total 400 Output Total 2030 30 Balance -2029 370 - Medications Medications: Current Medications Albuterol/Ipratropium (Duoneb 3 Mg/0.5 Mg (3 Ml) Ud) 3 ml INH RQ6 [facility] Last Admin: 09/07/17 13:42 Dose: 3 ml Alprazolam (Xanax) 1 mg PO DAILY [facility] Last Admin: 09/07/17 09:00 Dose: 1 mg Enoxaparin Sodium (Lovenox) 40 mg SC DAILY [facility] Last Admin: 09/07/17 09:00 Dose: 40 mg Ceftriaxone Sodium 1 gm/ (Sodium Chloride) 100 mls @ 100 mls/hr IVPB Q24H [facility] PRN Reason: Protocol Last Admin: 09/06/17 21:56 Dose: 100 mls/hr Azithromycin 500 mg/ Sodium (Chloride) 250 mls @ 167 mls/hr IVPB Q24H [facility] PRN Reason: Protocol Last Admin: 09/06/17 19:42 Dose: 167 mls/hr Methylprednisolone (Solu-Medrol) 40 mg IVP Q8 [facility] Last Admin: 09/07/17 13:17 Dose: 40 mg Oxycodone/Acetaminophen (Percocet 5/325 Mg Tab) 2 tab PO Q6H PRN PRN Reason: Pain, severe (8-10) Stop: 09/09/17 09:31 Last Admin: 09/07/17 17:41 Dose: 2 tab Pneumococcal Polyvalent Vaccine (Pneumovax 23 Vaccine) 0.5 ml IM .ONCE ONE Stop: 09/08/17 14:01 - Labs Labs: 09/07/17 06:30 09/07/17 06:30 PT 11.7 SECONDS (9.7-12.2) 09/06/17 11:07 INR 1.0 09/06/17 11:07 - Constitutional Appears: Well - Head Exam Head Exam: ATRAUMATIC, NORMAL INSPECTION, NORMOCEPHALIC - Eye Exam Eye Exam: EOMI, Normal appearance, PERRL Pupil Exam: NORMAL ACCOMODATION, PERRL - ENT Exam ENT Exam: Mucous Membranes Moist, Normal Exam - Neck Exam Neck Exam: Full ROM, Normal Inspection. absent: Lymphadenopathy - Respiratory Exam Respiratory Exam: Decreased Breath Sounds - Cardiovascular Exam Cardiovascular Exam: REGULAR RHYTHM, +S1, +S2 - GI/Abdominal Exam GI & Abdominal Exam: Soft, Diminished Bowel Sounds - Rectal Exam Rectal Exam: Deferred
[2017-09-07] MEDS: Azithromycin 500 MG in Sodium Chloride 0.9% 250 ML IVPB SCH (19:50)
[2017-09-08] MEDS: Oxycodone/Acetaminophen 5/325 mg Tab PO PRN ×3 (00:09→17:30)
[2017-09-08] MEDS: Albuterol-Ipratrop 3 mg / 0.5 (3 ml) UD INH SCH ×4 (01:14→20:02)
[2017-09-08] MEDS: MethylPREDNISolone 40 mg Vial IVP SCH ×3 (06:33→21:29)
--- NOTE | 2017-09-08 08:17 | RAD ---
Chest x-ray single frontal view History: Pleural effusion. Comparison: 09/07/2017 Findings: Pleural catheter/drain seen at the left lung base. Persistent moderate loculated left pleural effusion. Moderate venous congestion with left basilar airspace consolidative changes. Additional linear consolidative changes in the right hilar region extending into the right mid lung. Mild cardiomegaly. Degenerative changes in the spine and shoulders. Impression: Pleural catheter/drain seen at the left lung base. Persistent moderate loculated left pleural effusion. Moderate venous congestion with left basilar airspace consolidative changes. Additional linear consolidative changes in the right hilar region extending into the right mid lung. Mild cardiomegaly.
[2017-09-08] MEDS: Enoxaparin 40 mg Syringe SC SCH (09:16)
--- NOTE | 2017-09-08 11:07 | CP.PCM.PN ---
Subjective - Date & Time of Evaluation Date of Evaluation: 09/08/17 Time of Evaluation: 08:55 - Subjective Subjective: patient seen and examined Status post pigtail catheter insertion and still draining serosanguineous fluid Afebrile Patient states breathing much improved Denies cough, denies fever On IV antibiotics Objective - Vital Signs/Intake and Output Vital Signs (last 24 hours): Temp Pulse Resp BP Pulse Ox 98.2 F 70 20 130/73 97 09/08/17 07:00 09/08/17 07:00 09/08/17 07:00 09/08/17 07:00 09/08/17 07:00 Intake and Output: 09/08/17 09/08/17 06:59 18:59 Intake Total 770 Output Total 30 Balance 740 - Medications Medications: Current Medications Albuterol/Ipratropium (Duoneb 3 Mg/0.5 Mg (3 Ml) Ud) 3 ml INH RQ6 [facility] Last Admin: 09/08/17 07:19 Dose: 3 ml Alprazolam (Xanax) 1 mg PO DAILY [facility] Last Admin: 09/08/17 09:16 Dose: 1 mg Enoxaparin Sodium (Lovenox) 40 mg SC DAILY [facility] Last Admin: 09/08/17 09:16 Dose: 40 mg Ceftriaxone Sodium 1 gm/ (Sodium Chloride) 100 mls @ 100 mls/hr IVPB Q24H [facility] PRN Reason: Protocol Last Admin: 09/07/17 21:47 Dose: 100 mls/hr Azithromycin 500 mg/ Sodium (Chloride) 250 mls @ 167 mls/hr IVPB Q24H [facility] PRN Reason: Protocol Last Admin: 09/07/17 19:50 Dose: 167 mls/hr Methylprednisolone (Solu-Medrol) 40 mg IVP Q8 [facility] Last Admin: 09/08/17 06:33 Dose: 40 mg Oxycodone/Acetaminophen (Percocet 5/325 Mg Tab) 2 tab PO Q6H PRN PRN Reason: Pain, severe (8-10) Stop: 09/09/17 09:31 Last Admin: 09/08/17 09:15 Dose: 2 tab Pneumococcal Polyvalent Vaccine (Pneumovax 23 Vaccine) 0.5 ml IM .ONCE ONE Stop: 09/08/17 14:01 - Labs Labs: 09/07/17 06:30 09/07/17 06:30 PT 11.7 SECONDS (9.7-12.2) 09/06/17 11:07 INR 1.0 09/06/17 11:07 - Head Exam Head Exam: ATRAUMATIC, NORMOCEPHALIC - ENT Exam ENT Exam: Mucous Membranes Moist - Neck Exam Neck Exam: Normal Inspection - Respiratory Exam Respiratory Exam: Decreased Breath Sounds - Cardiovascular Exam Cardiovascular Exam: REGULAR RHYTHM - GI/Abdominal Exam GI & Abdominal Exam: Soft, Normal Bowel Sounds - Neurological Exam Neurological Exam: Alert Assessment and Plan (1) Pleural effusion on left Assessment & Plan: Status postpigtail catheter insertion and drainage off serosanguineous fluid Awaiting complete fluid analysis cytology and culture and sensitivi/LDH and total protein Chest x-ray still shows loculated effusion Repeat CAT scan Thoracic evaluation Status: Acute (2) Dyspnea Status: Acute
--- NOTE | 2017-09-08 13:38 | CP.PCM.CON ---
History of Present Illness - History of Present Illness History of Present Illness: Thoracic Surgery - Dr. Lancaster 61M who presented to the ED on 09/05 with worsening shortness of breath and cough x 4 months. He reports being unable to walk a block without getting winded. He denies any medical problems or recent travel. Pt was admitted to the hospital on 09/05 after being found to have a large Left pleural effusion on CT. On 09/06 he underwent IR placement of pigtail catheter which has drained close to 4L of serosanguinous fluid since placement. Pt states that he now feels much better, significantly improved SOB. He still has some cough with clear/white sputum. He denies any other symptoms including Chest pain, Fevers, Chills, Nausea, Vomiting, Weightloss. PMHx: Chronic back pain (discs), COPD, ETOH use PSH: Left elbow surgery NKDA SH: current smoker, past alcohol use Review of Systems - Review of Systems All systems: reviewed and no additional remarkable complaints except (as per HPI ) Past Patient History - Past Medical History & Family History Past Medical History?: Yes - Past Social History Smoking Status: Heavy Smoker > 10 Cigarettes Daily - CARDIAC Hx Cardiac Disorders: No - PULMONARY Hx Chronic Obstructive Pulmonary Disease (COPD): Yes - NEUROLOGICAL Hx Neurological Disorder: No - HEENT Hx HEENT Problems: No - RENAL Hx Chronic Kidney Disease: No - ENDOCRINE/METABOLIC Hx Endocrine Disorders: No - HEMATOLOGICAL/ONCOLOGICAL Hx Blood Disorders: No - INTEGUMENTARY Hx Dermatological Problems: No - MUSCULOSKELETAL/RHEUMATOLOGICAL Hx Musculoskeletal Disorders: No Hx Falls: No - GASTROINTESTINAL Hx Gastrointestinal Disorders: No - GENITOURINARY/GYNECOLOGICAL Hx Genitourinary Disorders: No - PSYCHIATRIC Hx Substance Use: No - SURGICAL HISTORY Hx Surgeries: Yes Hx Orthopedic Surgery: Yes (Lt elbow) - ANESTHESIA Hx Anesthesia: Yes Hx Anesthesia Reactions: No Meds Allergies/Adverse Reactions: Allergies Allergy/AdvReac Type Severity Reaction Status Date / Time No Known Allergies Allergy Verified 09/05/17 16:49 - Medications Medications: Current Medications Albuterol/Ipratropium (Duoneb 3 Mg/0.5 Mg (3 Ml) Ud) 3 ml INH RQ6 [facility] Last Admin: 09/08/17 13:26 Dose: 3 ml Alprazolam (Xanax) 1 mg PO DAILY [facility] Last Admin: 09/08/17 09:16 Dose: 1 mg Enoxaparin Sodium (Lovenox) 40 mg SC DAILY [facility] Last Admin: 09/08/17 09:16 Dose: 40 mg Azithromycin 500 mg/ Sodium (Chloride) 250 mls @ 167 mls/hr IVPB Q24H [facility] PRN Reason: Protocol Last Admin: 09/07/17 19:50 Dose: 167 mls/hr Cefepime HCl 1 gm/ Dextrose 50 mls @ 100 mls/hr IVPB Q12H [facility] PRN Reason: Protocol Last Admin: 09/08/17 12:26 Dose: 100 mls/hr Methylprednisolone (Solu-Medrol) 40 mg IVP Q8 [facility] Last Admin: 09/08/17 13:18 Dose: 40 mg Oxycodone/Acetaminophen (Percocet 5/325 Mg Tab) 2 tab PO Q6H PRN PRN Reason: Pain, severe (8-10) Stop: 09/09/17 09:31 Last Admin: 09/08/17 09:15 Dose: 2 tab Pneumococcal Polyvalent Vaccine (Pneumovax 23 Vaccine) 0.5 ml IM .ONCE ONE Stop: 09/08/17 14:01 Physical Exam - Constitutional Appears: No Acute Distress - Head Exam Head Exam: ATRAUMATIC, NORMAL INSPECTION, NORMOCEPHALIC - Eye Exam Eye Exam: Normal appearance - ENT Exam ENT Exam: Mucous Membranes Moist - Respiratory Exam Respiratory Exam: NORMAL BREATHING PATTERN. absent: Respiratory Distress Additional comments: L pgtail catheter to wall suction, chamber full (2L serosanguinous), no airleak - Cardiovascular Exam Cardiovascular Exam: REGULAR RHYTHM - Neurological Exam Neurological exam: Alert, Oriented x3 - Psychiatric Exam Psychiatric exam: Normal Affect, Normal Mood - Skin Skin Exam: Dry, Intact Results - Vital Signs Recent Vital Signs: Last Vital Signs Temp 98.2 F 09/08/17 07:00 Pulse 70 09/08/17 07:00 Resp 20 09/08/17 07:00 BP 130/73 09/08/17 07:00 Pulse Ox 97 09/08/17 07:00 - Labs Result Diagrams: 09/07/17 06:30 09/07/17 06:30 Labs: Laboratory Results - last 24 hr 09/08/17 11:22 POC Glucose (mg/dL) 115 H - Imaging and Cardiology CT scan - chest Status: Image reviewed by me, Report reviewed by me Assessment & Plan - Assessment and Plan (Free Text) Assessment: 61 yo M w/ large L pleural effusion, s/p IR pigtail catheter on 09/05 -Repeat CT today shows trace residual effusion -Continue pigtail to wall suction -F/U Pleural fluid analysis -F/U Cytology -Continue care as per pulmonology -No thoracic surgery intervention at this time Joshua Lancaster
[2017-09-08] MEDS ORDERED: Pneumococcal 23-Valent Vaccine IM ONE (14:00)
--- NOTE | 2017-09-08 15:26 | CP.PCM.PN ---
Subjective - Date & Time of Evaluation Date of Evaluation: 09/08/17 Time of Evaluation: 12:20 - Subjective Subjective: clinically same Objective - Vital Signs/Intake and Output Vital Signs (last 24 hours): Temp Pulse Resp BP Pulse Ox 98.2 F 70 20 130/73 97 09/08/17 07:00 09/08/17 07:00 09/08/17 07:00 09/08/17 07:00 09/08/17 07:00 Intake and Output: 09/08/17 09/08/17 06:59 18:59 Intake Total 770 350 Output Total 30 110 Balance 740 240 - Medications Medications: Current Medications Albuterol/Ipratropium (Duoneb 3 Mg/0.5 Mg (3 Ml) Ud) 3 ml INH RQ6 [facility] Last Admin: 09/08/17 13:26 Dose: 3 ml Alprazolam (Xanax) 1 mg PO DAILY [facility] Last Admin: 09/08/17 09:16 Dose: 1 mg Enoxaparin Sodium (Lovenox) 40 mg SC DAILY [facility] Last Admin: 09/08/17 09:16 Dose: 40 mg Azithromycin 500 mg/ Sodium (Chloride) 250 mls @ 167 mls/hr IVPB Q24H [facility] PRN Reason: Protocol Last Admin: 09/07/17 19:50 Dose: 167 mls/hr Cefepime HCl 1 gm/ Dextrose 50 mls @ 100 mls/hr IVPB Q12H [facility] PRN Reason: Protocol Last Admin: 09/08/17 12:26 Dose: 100 mls/hr Methylprednisolone (Solu-Medrol) 40 mg IVP Q8 [facility] Last Admin: 09/08/17 13:18 Dose: 40 mg Oxycodone/Acetaminophen (Percocet 5/325 Mg Tab) 2 tab PO Q6H PRN PRN Reason: Pain, severe (8-10) Stop: 09/09/17 09:31 Last Admin: 09/08/17 09:15 Dose: 2 tab - Labs Labs: 09/07/17 06:30 09/07/17 06:30 PT 11.7 SECONDS (9.7-12.2) 09/06/17 11:07 INR 1.0 09/06/17 11:07 - Constitutional Appears: Well - Head Exam Head Exam: ATRAUMATIC, NORMAL INSPECTION, NORMOCEPHALIC - Eye Exam Eye Exam: EOMI, Normal appearance, PERRL Pupil Exam: NORMAL ACCOMODATION, PERRL - ENT Exam ENT Exam: Mucous Membranes Moist, Normal Exam - Neck Exam Neck Exam: Full ROM, Normal Inspection. absent: Lymphadenopathy - Respiratory Exam Respiratory Exam: Decreased Breath Sounds - Cardiovascular Exam Cardiovascular Exam: REGULAR RHYTHM, +S1, +S2 - GI/Abdominal Exam GI & Abdominal Exam: Soft, Diminished Bowel Sounds - Rectal Exam Rectal Exam: Deferred
--- NOTE | 2017-09-08 16:48 | CT ---
CT chest History: Pleural effusion. Comparison: X-ray dated 09/08/2017 Technique: Multiple contiguous axial images were performed through the chest without the use of intravenous contrast. Subsequently, sagittal and coronal reformatted images were obtained. This CT exam was performed using one or more of the following dose reduction techniques: Automated exposure control, adjustment of the mA and/or kV according to patient size, and/or use of iterative reconstruction technique. Findings: Left lung: Pleural catheter and or drain seen within the lateral aspect of the left lower lung zone. Small to moderate left-sided hydropneumothorax with fluid and air seen layering along the mid to inferior aspect of the left andres thorax. Additional smaller pneumothorax seen at the left lung apex extending posteriorly to the level of the fissure. Emphysematous changes. Apical pleural thickening. 6 millimeter nodule at the left lung apex. Fluid and air tracking along the fissure on the left. Linear atelectasis within the inferior aspect of the left upper lobe with consolidative changes. 5 millimeter pulmonary nodule on series 3, image 4 within the inferior aspect of the left upper lobe. Prominent consolidative changes within the posterior aspect of the left lower lobe. Right lung: Emphysematous changes. Trace right pleural effusion with adjacent atelectasis and or consolidation. More superiorly within the right lower lobe there is prominent focal nodular consolidative changes. 7 millimeter intraluminal density at the level of the left mainstem bronchus of uncertain clinical etiology. Correlation with bronchoscopy would be helpful for further evaluation if clinically indicated. No significant axillary adenopathy. Thyroid is preserved. Calcification and plaque the aorta. Proximal ascending aorta measures up to 3.5 centimeters. Prevascular lymph node measures up to 1.5 centimeters. Precarinal lymph node measures up to 9 millimeters. No significant hilar adenopathy. No pericardial effusion. Contracted and or resected gallbladder. Diminutive spleen. Nodular thickening of the bilateral adrenal glands with low-attenuation lesions seen on the right measuring up to 2.8 centimeters demonstrating a Hounsfield unit attenuation of 4 and up to 2.9 centimeter on the left demonstrating a Hounsfield unit attenuation of 2 suggestive for possible adenomas. These may be better delineated with multiphasic CT scans. Fatty atrophy of the pancreas. Degenerative changes in the spine. Impression: 1. Pleural catheter and or drain seen within the lateral aspect of the left lower lung zone. Small to moderate left-sided hydropneumothorax with fluid and air seen layering along the mid to inferior aspect of the left andres thorax. Additional smaller pneumothorax seen at the left lung apex extending posteriorly to the level of the fissure. 2. Emphysematous changes in the left lung. Apical pleural thickening. 6 millimeter nodule at the left lung apex. Fluid and air tracking along the fissure on the left. Linear atelectasis within the inferior aspect of the left upper lobe with consolidative changes. 5 millimeter pulmonary nodule on series 3, image 4 within the inferior aspect of the left upper lobe. Prominent consolidative changes within the posterior aspect of the left lower lobe. 3. Emphysematous changes in the right lung. Trace right pleural effusion with adjacent atelectasis and or consolidation. More superiorly within the right lower lobe there is prominent focal nodular consolidative changes. 4. 7 millimeter intraluminal density at the level of the left mainstem bronchus of uncertain clinical etiology. Correlation with bronchoscopy would be helpful for further evaluation if clinically indicated. 5. Calcification and plaque the aorta. Proximal ascending aorta measures up to 3.5 centimeters. 6. Prevascular lymph node measures up to 1.5 centimeters. Precarinal lymph node measures up to 9 millimeters. 7. Nodular thickening of the bilateral adrenal glands with low-attenuation lesions seen on the right measuring up to 2.8 centimeters demonstrating a Hounsfield unit attenuation of 9 and up to 2.9 centimeter on the left demonstrating a Hounsfield unit attenuation of 7 suggestive for possible adenomas. These may be better delineated with multiphasic CT scans. 8. Fatty atrophy of the pancreas.
[2017-09-08] MEDS: Azithromycin 500 MG in Sodium Chloride 0.9% 250 ML IVPB SCH (19:18)
[2017-09-09] MEDS: Oxycodone/Acetaminophen 5/325 mg Tab PO PRN ×2 (00:44→08:36)
[2017-09-09] MEDS: Albuterol-Ipratrop 3 mg / 0.5 (3 ml) UD INH SCH ×3 (01:13→13:16)
[2017-09-09] MEDS: MethylPREDNISolone 40 mg Vial IVP SCH ×2 (05:47→13:57)
[2017-09-09 06:00] LABS: GLUCOSE PLEURAL FLUID 81 mg/dL; LDH PLEURAL FLUID 1837 U/L
[2017-09-09] MEDS: Enoxaparin 40 mg Syringe SC SCH (09:52)
--- NOTE | 2017-09-09 10:51 | US ---
PROCEDURE: ULTRASOUND-GUIDED CHEST TUBE INSERTION CLINICAL HISTORY: 61-year-old male with large pleural effusion and shortness of breath is referred to Interventional Radiology for ultrasound-guided chest tube insertion. COMPARISON: CT scan of the chest dated 09/05/2017 PROCEDURE: 1. Ultrasound-guided left chest tube insertion. PRE-PROCEDURE FINDINGS: 1. Large volume pleural effusion. POST-PROCEDURE FINDINGS: 1. No evidence of post-procedural complication. INTERVENTIONAL RADIOLOGIST: Kenny Rosado M.D. (the attending was present for the entire procedure) ANESTHESIA: None. MEDICATION: Lidocaine 1% for local subcutaneous analgesia. COMPLICATIONS: None. PROCEDURE DESCRIPTION AND FINDINGS: The risks, benefits, alternatives and possible complications of the procedure were fully discussed; all questions were answered and informed consent was obtained. The patient was brought into the interventional suite and a pre-procedure 'time-out' was performed. The patient was placed in the seated position. Preliminary ultrasound images of the left hemithorax demonstrate a large simple. Pleural effusion. The left hemithorax was prepped and draped in the usual sterile fashion. Maximum sterile barrier precautions were maintained throughout the entire procedure. Following subcutaneous infiltration of lidocaine 1% for local analgesia, under ultrasound guidance, a 5 [place] centesis catheter was advanced into the left pleural space with real-time visualization of needle entry. The ultrasound images were permanently recorded and submitted to the PACS. The inner stylet was removed with prompt return of dark serosanguineous fluid. A sample was sent to the laboratory for analysis. The drainage catheter was then removed 0.035 guidewire was advanced via the needle. The needle was removed over the guidewire and after serial dilatation, an 8 [place] chest tube was advanced over the guidewire with pigtail formed in the pleural space. The catheter was secured utilizing sterile adhesive bandage and connected to Pleur-Evac drainage system. The patient tolerated the procedure well without immediate post-procedure complications and was transferred back to the floor in stable condition. IMPRESSION: SUCCESSFUL ULTRASOUND-GUIDED LEFT CHEST TUBE INSERTION.
[2017-09-09] MEDS ORDERED: Oxycodone/Acetaminophen 5/325 mg Tab PO PRN (15:57)
[2017-09-09 16:06] VITALS: BP 128/76; PULSE 88; RESP 20; TEMP 98.1; O2SAT 96
--- NOTE | 2017-09-09 17:02 | CP.PCM.PN ---
Subjective - Date & Time of Evaluation Date of Evaluation: 09/09/17 Time of Evaluation: 07:00 - Subjective Subjective: CT Surgery: Dr. Lancaster Pt seen and examined. No acute overnight events. States he's feeling better today and denies any SOB. No other complaints at this time. Denies F/C, N/V. Objective - Vital Signs/Intake and Output Vital Signs (last 24 hours): Temp Pulse Resp BP Pulse Ox 98.1 F 88 20 128/76 96 09/09/17 15:00 09/09/17 15:00 09/09/17 15:00 09/09/17 15:00 09/09/17 15:00 Intake and Output: 09/09/17 09/09/17 06:59 18:59 Intake Total 590 Output Total 1020 0 Balance -430 0 - Medications Medications: Current Medications Albuterol/Ipratropium (Duoneb 3 Mg/0.5 Mg (3 Ml) Ud) 3 ml INH RQ6 [facility] Last Admin: 09/09/17 13:16 Dose: 3 ml Alprazolam (Xanax) 1 mg PO DAILY [facility] Last Admin: 09/09/17 09:52 Dose: 1 mg Enoxaparin Sodium (Lovenox) 40 mg SC DAILY [facility] Last Admin: 09/09/17 09:52 Dose: 40 mg Azithromycin 500 mg/ Sodium (Chloride) 250 mls @ 167 mls/hr IVPB Q24H [facility] PRN Reason: Protocol Last Admin: 09/08/17 19:18 Dose: 167 mls/hr Cefepime HCl 1 gm/ Dextrose 50 mls @ 100 mls/hr IVPB Q12H [facility] PRN Reason: Protocol Last Admin: 09/09/17 12:10 Dose: 100 mls/hr Methylprednisolone (Solu-Medrol) 40 mg IVP Q8 [facility] Last Admin: 09/09/17 13:57 Dose: 40 mg Oxycodone/Acetaminophen (Percocet 5/325 Mg Tab) 1 tab PO Q6H PRN PRN Reason: Pain, moderate (4-7) Stop: 09/12/17 15:58 - Labs Labs: 09/07/17 06:30 09/07/17 06:30 PT 11.7 SECONDS (9.7-12.2) 09/06/17 11:07 INR 1.0 09/06/17 11:07 - Constitutional Appears: Well, No Acute Distress - Eye Exam Eye Exam: Normal appearance - ENT Exam ENT Exam: Mucous Membranes Moist - Respiratory Exam Respiratory Exam: NORMAL BREATHING PATTERN - Cardiovascular Exam Cardiovascular Exam: RRR - GI/Abdominal Exam GI & Abdominal Exam: Soft. absent: Distended - Neurological Exam Neurological Exam: Alert, Awake, Oriented x3 - Skin Skin Exam: Dry, Warm Assessment and Plan - Assessment and Plan (Free Text) Assessment: 61M with L pleural effusion s/p IR drainage Plan: - since pt had significant improvement in pleural effusion post IR drainage, no other surgical intervention at this time - chest tube management per IR - will f/u fluid cytology - recommend bronchoscopy for lesion seen on CT in L mainstem bronchus - d/w Dr. Tonny Lemus, PGY-3
--- NOTE | 2017-09-09 18:13 | CP.PCM.PN ---
Subjective - Date & Time of Evaluation Date of Evaluation: 09/09/17 Time of Evaluation: 10:45 - Subjective Subjective: Patient seen and examined at bedside. Patient reports shortness of breath still present. Decreased serosanguinous discharge from pigtail catheter, OK to remove. Assessment and Plan: 1. Pleural effusion - CXR 09/05: Massive left pleural effusion, cannot exclude underlying atelectasis or infiltrate - CT Chest 09/05: Large left pleural effusion with consolidation/atelectacsis in left lung with endobronchial material in the left main bronchus and distal bronchioles - CT Chest 09/08: small to moderate left-sided hydropneumothorax with fluid and air layering along the mid to inferior aspect of the left hemithorax. Additional smaller pneumothorax seen at left lung apex. 7mm intraluminal density at the level of the left mainstem bronchus - IR placed pigtail catheter 09/06 - Pleural fluid analysis 09/06: 2374 WBC, [id number] RBC, 6 neutrophils, 88 lymphocytes - Dr. [place], CT surgery consulted no surgical intervention at this time - plan is for bronchoscopy tomorrow but patient wants to sign out against medical advise, risks explained to the patient's which he understood. 2. Dyspnea on exertion likely secondary to large pleural effusion and COPD - HR 72-77 - 98% O2 sat on 3L NC - solumedrol - duonebs - IV cefepime 3. Nicotine dependence - Nicotine patch prescription 4. COPD - CT Chest 09/08: emphysematous changes in the right and left lungs Objective - Vital Signs/Intake and Output Vital Signs (last 24 hours): Temp Pulse Resp BP Pulse Ox 98.1 F 88 20 128/76 96 09/09/17 15:00 09/09/17 15:00 09/09/17 15:00 09/09/17 15:00 09/09/17 15:00 Intake and Output: 09/09/17 09/09/17 06:59 18:59 Intake Total 590 Output Total 1020 0 Balance -430 0 - Medications Medications: Current Medications Albuterol/Ipratropium (Duoneb 3 Mg/0.5 Mg (3 Ml) Ud) 3 ml INH RQ6 [facility] Last Admin: 09/09/17 13:16 Dose: 3 ml Alprazolam (Xanax) 1 mg PO DAILY [facility] Last Admin: 09/09/17 09:52 Dose: 1 mg Enoxaparin Sodium (Lovenox) 40 mg SC DAILY [facility] Last Admin: 09/09/17 09:52 Dose: 40 mg Azithromycin 500 mg/ Sodium (Chloride) 250 mls @ 167 mls/hr IVPB Q24H [facility] PRN Reason: Protocol Last Admin: 09/08/17 19:18 Dose: 167 mls/hr Cefepime HCl 1 gm/ Dextrose 50 mls @ 100 mls/hr IVPB Q12H [facility] PRN Reason: Protocol Last Admin: 09/09/17 12:10 Dose: 100 mls/hr Methylprednisolone (Solu-Medrol) 40 mg IVP Q8 [facility] Last Admin: 09/09/17 13:57 Dose: 40 mg Oxycodone/Acetaminophen (Percocet 5/325 Mg Tab) 1 tab PO Q6H PRN PRN Reason: Pain, moderate (4-7) Stop: 09/12/17 15:58 Last Admin: 09/09/17 17:00 Dose: 1 tab - Labs Labs: 09/07/17 06:30 09/07/17 06:30 PT 11.7 SECONDS (9.7-12.2) 09/06/17 11:07 INR 1.0 09/06/17 11:07 Assessment and Plan (1) Pleural effusion on left Status: Acute (2) Dyspnea Status: Acute
--- NOTE | 2017-09-09 18:38 | CP.PCM.PN ---
Subjective - Date & Time of Evaluation Date of Evaluation: 09/09/17 Time of Evaluation: 12:00 - Subjective Subjective: clinically same Objective - Vital Signs/Intake and Output Vital Signs (last 24 hours): Temp Pulse Resp BP Pulse Ox 98.1 F 88 20 128/76 96 09/09/17 15:00 09/09/17 15:00 09/09/17 15:00 09/09/17 15:00 09/09/17 15:00 Intake and Output: 09/09/17 09/09/17 06:59 18:59 Intake Total 590 Output Total 1020 0 Balance -430 0 - Medications Medications: Current Medications Albuterol/Ipratropium (Duoneb 3 Mg/0.5 Mg (3 Ml) Ud) 3 ml INH RQ6 [facility] Last Admin: 09/09/17 13:16 Dose: 3 ml Alprazolam (Xanax) 1 mg PO DAILY [facility] Last Admin: 09/09/17 09:52 Dose: 1 mg Enoxaparin Sodium (Lovenox) 40 mg SC DAILY [facility] Last Admin: 09/09/17 09:52 Dose: 40 mg Azithromycin 500 mg/ Sodium (Chloride) 250 mls @ 167 mls/hr IVPB Q24H [facility] PRN Reason: Protocol Last Admin: 09/08/17 19:18 Dose: 167 mls/hr Cefepime HCl 1 gm/ Dextrose 50 mls @ 100 mls/hr IVPB Q12H [facility] PRN Reason: Protocol Last Admin: 09/09/17 12:10 Dose: 100 mls/hr Methylprednisolone (Solu-Medrol) 40 mg IVP Q8 [facility] Last Admin: 09/09/17 13:57 Dose: 40 mg Oxycodone/Acetaminophen (Percocet 5/325 Mg Tab) 1 tab PO Q6H PRN PRN Reason: Pain, moderate (4-7) Stop: 09/12/17 15:58 Last Admin: 09/09/17 17:00 Dose: 1 tab - Labs Labs: 09/07/17 06:30 09/07/17 06:30 PT 11.7 SECONDS (9.7-12.2) 09/06/17 11:07 INR 1.0 09/06/17 11:07 - Constitutional Appears: Well - Head Exam Head Exam: ATRAUMATIC, NORMAL INSPECTION, NORMOCEPHALIC - Eye Exam Eye Exam: EOMI, Normal appearance, PERRL Pupil Exam: NORMAL ACCOMODATION, PERRL - ENT Exam ENT Exam: Mucous Membranes Moist, Normal Exam - Neck Exam Neck Exam: Full ROM, Normal Inspection. absent: Lymphadenopathy - Respiratory Exam Respiratory Exam: Decreased Breath Sounds - Cardiovascular Exam Cardiovascular Exam: REGULAR RHYTHM, +S1, +S2 - GI/Abdominal Exam GI & Abdominal Exam: Soft, Diminished Bowel Sounds - Rectal Exam Rectal Exam: Deferred
== END 2017-09-09 19:30 | disposition left against medical advice (07) | DRG 187 ==
LOC: C.ER 16:36 → C.9E 19:02 → C.6T 22:14
PROVIDERS: ADMIT Internal Medicine Nephrology; ATTEND Internal Medicine Nephrology
PROC: 0W9B30Z Drainage of Left Pleural Cavity with Drainage Device, Percutaneous Approach (ICD-10-PCS; principal; 2017-09-06)
DX: J90 Pleural effusion, not elsewhere classified (principal); J93.9 Pneumothorax, unspecified; J44.9 Chronic obstructive pulmonary disease, unspecified; F17.200 Nicotine dependence, unspecified, uncomplicated

== ENCOUNTER 2018-02-25 19:21 | Inpatient (IN) | payer BC ==
[2018-02-25] MEDS ORDERED: Albuterol-Ipratrop 3 mg / 0.5 (3 ml) UD ONE ×2 (19:43→20:31)
--- NOTE | 2018-02-25 20:02 | C.PDOC ---
History Of Present Illness Patient presents to the ER with a complaint of worsening SOB over the last few days. He also reports some wheezing and notes he still smokes a pack a day. Patient felt SOB while in the main lobby, rapid response was called, however, patient is currently speaking in complete sentences and denies chest pain, fever, chills, nausea, or vomiting. Time Seen by Provider: 02/25/18 19:54 Chief Complaint (Nursing): Shortness Of Breath History Per: Patient History/Exam Limitations: no limitations Onset/Duration Of Symptoms: Days Current Symptoms Are (Timing): Still Present Initiating Event: Other (Not known) Current Respiratory Medications: None Severity: Moderate Pain Scale Rating Of: 4 Associated Symptoms: denies: Fever, Chills, Chest Pain, Other (Nausea, Vomiting) Reports Recently: Seen In ED, Treated By A Physician, Hospitalized Recent travel outside of the [place] States: No Additional History Per: Patient Past Medical History Reviewed: Historical Data, Nursing Documentation, Vital Signs Vital Signs: Last Vital Signs Temp 97.9 F 02/25/18 19:26 Pulse 113 H 02/25/18 21:33 Resp 21 02/25/18 21:33 BP 154/82 H 02/25/18 21:33 Pulse Ox 98 02/25/18 21:33 - Medical History PMH: Back Problems, COPD Denies: Chronic Kidney Disease - [facility] Procedures DRAINAGE OF L PLEURAL CAV WITH DRAIN DEV, PERC APPROACH (09/05/17) Family History: States: No Known Family Hx - Social History Hx Tobacco Use: Yes Hx Alcohol Use: Yes Hx Substance Use: No - Immunization History Hx Tetanus Toxoid Vaccination: No Hx Influenza Vaccination: No Hx Pneumococcal Vaccination: No Review Of Systems Constitutional: Negative for: Fever, Chills ENT: Negative for: Throat Pain Cardiovascular: Negative for: Chest Pain, Palpitations Respiratory: Positive for: Shortness of Breath, Wheezing. Negative for: Cough Gastrointestinal: Negative for: Nausea, Vomiting Genitourinary: Negative for: Dysuria Musculoskeletal: Negative for: Back Pain Skin: Negative for: Rash Neurological: Negative for: Weakness, Numbness Psych: Negative for: Anxiety Physical Exam - Physical Exam Appears: Non-toxic Skin: Warm, Dry Head: Normacephalic Eye(s): bilateral: Normal Inspection Oral Mucosa: Moist Throat: No Erythema, No Other (Swelling) Neck: Trachea Midline, Supple Chest: Symmetrical, No Tenderness Cardiovascular: Rhythm Regular Respiratory: Decreased Breath Sounds (Left side), No Rales, Rhonchi, Wheezing Gastrointestinal/Abdominal: Soft, No Tenderness Back: No CVA Tenderness Extremity: Pedal Edema (Trace) Extremity: Bilateral: Atraumatic Pulses: Left Dorsalis Pedis: Normal, Right Dorsalis Pedis: Normal Neurological/Psych: Oriented x3 Gait: Steady ED Course And Treatment - Laboratory Results Result Diagrams: 02/25/18 20:17 02/25/18 20:17 ECG: Interpreted By Me, Viewed By Me ECG Rhythm: Sinus Rhythm (107), Nonspecific Changes O2 Sat by Pulse Oximetry: 100 (Room air) Pulse Ox Interpretation: Normal - Radiology CXR: Interpreted by Me, Viewed By Me CXR Interpretation: Yes: Other (fibritc changes, no left effusion). No: Infiltrates, Fracture, Pnemothorax Progress Note: Blood work, EKG, and CXR ordered. Albuterol nebulizer administered. Critical Care Time - Critical Care Note Total Time (in mins): 30 Documented critical care: time excludes all time spent performing seperately billable procedures. Disposition Discussed With DrTy: Cadence Galindo Comment: accepted the pt on his service and took over the care at 10PM Doctor Will See Patient In The: Hospital Counseled Patient/Family Regarding: Studies Performed, Diagnosis, Smoking Cessation - Disposition Disposition: HOSPITALIZED Disposition Time: 19:45 Condition: FAIR Forms: [facility] (Qatari) - POA Present On Arrival: Poor Glycemic Control - Clinical Impression Clinical Impression: Respiratory distress, COPD exacerbation - Scribe Statement The provider has reviewed the documentation as recorded by the Scribgm Zacarias All medical record entries made by the Scribe were at my direction and personally dictated by me. I have reviewed the chart and agree that the record accurately reflects my personal performance of the history, physical exam, medical decision making, and the department course for this patient. I have also personally directed, reviewed, and agree with the discharge instructions and disposition. Decision To Admit - Pt Status Changed To: Hospital Disposition Of: Inpatient - Admit Certification Admit to Inpatient:: After my assessment, the patient will require hospitalization for at least two midnights. This is because of the severity of symptoms shown, intensity of services needed, and/or the medical risk in this patient being treated as an outpatient. - InPatient: Physician Admission Certification: I certify that this patient requires 2 or more midnights of care for the following reason:: After my assessment, the patient will require hospitalization for at least two midnights. This is because of the severity of symptoms shown, intensity of services needed, and/or the medical risk in this patient being treated as an outpatient. - . Bed Request Type: Telemetry Admitting Physician: Cadence Galindo Patient Diagnosis: Respiratory distress, COPD exacerbation
[2018-02-25 20:22] LABS: BASO # 0.1 K/uL (0.0-0.2); BASO % 1.1 % (0.0-2.0); EOS # 0.1 K/uL (0.0-0.7); EOS % 1.1 % (0.0-4.0); HEMOGLOBIN 11.5 g/dL (12.0-18.0); LYMPH % 26.1 % (20.0-40.0); MEAN CORPUSCULAR HEMOGLOBIN 21.2 pg (27.0-31.0); MEAN CORPUSCULAR HGB CONC 30.3 g/dL (33.0-37.0); MEAN PLATELET VOLUME 7.6 fL (7.2-11.7); MONO # 0.6 K/uL (0.0-0.8); MONO % 7.4 % (0.0-10.0); NEUT % 64.3 % (50.0-75.0); NRBC % 0.1 % (0.0-2.0); RBC 5.44 Mil/uL (4.40-5.90); RED CELL DISTRIBUTION WIDTH 18.5 % (11.5-14.5); WHITE BLOOD COUNT 7.8 K/uL (4.8-10.8)
[2018-02-25 20:29] LABS: PROTHROMBIN TIME 11.3 SECONDS (9.7-12.2)
[2018-02-25 20:32] LABS: ALB/GLOB RATIO 1.2 (1.0-2.1); ALBUMIN 4.7 g/dL (3.5-5.0); BLOOD UREA NITROGEN 17 mg/dL (9-20); CALCIUM 9.8 mg/dl (8.6-10.4); GFR NON-AFRICAN AMERICAN > 60
[2018-02-25] MEDS: Albuterol-Ipratrop 3 mg / 0.5 (3 ml) UD IH SCH (20:36)
[2018-02-25 20:38] LABS: ALT/SGPT 30 U/L (21-72); AST/SGOT 45 U/L (17-59)
[2018-02-25 20:41] LABS: B-TYPE NATRIURETIC PEPTIDE 140 pg/mL (0-900)
[2018-02-25 21:41] LABS: VENOUS BLOOD GAS BASE EXCESS -10.4 mmol/L (0.0-2.0); VENOUS BLOOD GAS PCO2 23 mmHg (40-60); VENOUS BLOOD GAS PO2 24 mm/Hg (30-55); VENOUS BLOOD PH 7.36 (7.32-7.43)
[2018-02-25] MEDS ORDERED: Home Med 1 UNIT (Oxycodone Hcl/Acetaminophen [Percocet 10-325 Mg Tablet] 1 EACH) PO PRN (23:44)
--- NOTE | 2018-02-25 23:51 | CP.PCM.HP ---
Past Patient History - Past Medical History & Family History Past Medical History?: Yes - Past Social History Smoking Status: Heavy Smoker > 10 Cigarettes Daily - CARDIAC Hx Cardiac Disorders: No - PULMONARY Hx Chronic Obstructive Pulmonary Disease (COPD): Yes - NEUROLOGICAL Hx Neurological Disorder: No - HEENT Hx HEENT Problems: No - RENAL Hx Chronic Kidney Disease: No - ENDOCRINE/METABOLIC Hx Endocrine Disorders: No - HEMATOLOGICAL/ONCOLOGICAL Hx Blood Disorders: No - INTEGUMENTARY Hx Dermatological Problems: No - MUSCULOSKELETAL/RHEUMATOLOGICAL Hx Musculoskeletal Disorders: Yes Hx Falls: No - GASTROINTESTINAL Hx Gastrointestinal Disorders: No - GENITOURINARY/GYNECOLOGICAL Hx Genitourinary Disorders: No - PSYCHIATRIC Hx Substance Use: No - SURGICAL HISTORY Hx Surgeries: Yes Hx Orthopedic Surgery: Yes (Lt elbow) - ANESTHESIA Hx Anesthesia: Yes Hx Anesthesia Reactions: No Meds Allergies/Adverse Reactions: Allergies Allergy/AdvReac Type Severity Reaction Status Date / Time No Known Allergies Allergy Verified 09/05/17 16:49 Physical Exam - Constitutional Appears: Non-toxic - Head Exam Head Exam: NORMOCEPHALIC - Eye Exam Eye Exam: Normal appearance - ENT Exam ENT Exam: Mucous Membranes Moist - Neck Exam Neck exam: Positive for: Normal Inspection - Respiratory Exam Respiratory Exam: Decreased Breath Sounds - Cardiovascular Exam Cardiovascular Exam: +S1, +S2 - GI/Abdominal Exam GI & Abdominal Exam: Diminished Bowel Sounds - Rectal Exam Rectal Exam: Deferred Results - Vital Signs Recent Vital Signs: Last Vital Signs Temp 99.1 F 02/25/18 23:43 Pulse 96 H 02/25/18 23:43 Resp 19 02/25/18 23:43 BP 127/68 02/25/18 23:43 Pulse Ox 96 02/25/18 23:43 - Labs Result Diagrams: 02/25/18 20:17 02/25/18 20:17 Labs: Laboratory Results - last 24 hr 02/25/18 02/25/18 02/25/18 20:17 20:17 20:17 WBC 7.8 RBC 5.44 Hgb 11.5 L Hct 37.0 MCV 70.0 L D MCH 21.2 L MCHC 30.3 L RDW 18.5 H Plt Count 528 H MPV 7.6 Neut % (Auto) 64.3 Lymph % (Auto) 26.1 [place] % (Auto) 7.4 Eos % (Auto) 1.1 Baso % (Auto) 1.1 Neut # (Auto) 5.0 Lymph # (Auto) 2.0 [place] # (Auto) 0.6 Eos # (Auto) 0.1 Baso # (Auto) 0.1 PT 11.3 INR 1.0 APTT 48 H pO2 VBG pH VBG pCO2 VBG HCO3 VBG Total CO2 VBG O2 Sat (Calc) VBG Base Excess VBG Potassium Glucose Lactate Crit Value Called To Crit Value Called By Crit Value Read Back Blood Gas Notified Time Sodium 138 Potassium 4.4 Chloride 96 L Carbon Dioxide 30 Anion Gap 16 BUN 17 Creatinine 0.9 Est GFR ( Amer) > 60 Est GFR (Non-Af Amer) > 60 Random Glucose 119 H Calcium 9.8 Magnesium 1.9 Total Bilirubin 0.6 AST 45 ALT 30 Alkaline Phosphatase 145 H D NT-Pro-B Natriuret Pep 140 Total Protein 8.6 H Albumin 4.7 Globulin 3.9 Albumin/Globulin Ratio 1.2 Venous Blood Potassium 02/25/18 20:36 WBC RBC Hgb Hct MCV MCH MCHC RDW Plt Count MPV Neut % (Auto) Lymph % (Auto) [place] % (Auto) Eos % (Auto) Baso % (Auto) Neut # (Auto) Lymph # (Auto) [place] # (Auto) Eos # (Auto) Baso # (Auto) PT INR APTT pO2 24 L VBG pH 7.36 VBG pCO2 23 L VBG HCO3 15.2 VBG Total CO2 13.7 L VBG O2 Sat (Calc) 47.9 VBG Base Excess -10.4 L VBG Potassium 1.6 L* Glucose 52 L Lactate 0.9 Crit Value Called To Dr. lazo Crit Value Called By Last lara Crit Value Read Back Y Blood Gas Notified Time 2039 Sodium 153.0 H Potassium Chloride 131.0 H Carbon Dioxide Anion Gap BUN Creatinine Est GFR ( Amer) Est GFR (Non-Af Amer) Random Glucose Calcium Magnesium Total Bilirubin AST ALT Alkaline Phosphatase NT-Pro-B Natriuret Pep Total Protein Albumin Globulin Albumin/Globulin Ratio Venous Blood Potassium 1.6 L*
[2018-02-25] MEDS ORDERED: cefTRIAXone 1 gm 1 GM/100 ML BAG IVPB ONE (23:59)
[2018-02-26] MEDS ORDERED: Oxycodone/Acetaminophen 5/325 mg Tab ONE
[2018-02-26] MEDS: Oxycodone/Acetaminophen 5/325 mg Tab PO PRN ×4 (00:01→21:29)
[2018-02-26] MEDS: Albuterol-Ipratrop 3 mg / 0.5 (3 ml) UD INH SCH ×2 (01:35→20:08)
[2018-02-26 08:33] LABS: BASO # 0.1 K/uL (0.0-0.2); BASO % 1.2 % (0.0-2.0); EOS # 0.1 K/uL (0.0-0.7); EOS % 1.4 % (0.0-4.0); LYMPH # 1.9 K/uL (1.0-4.3); LYMPH % 25.3 % (20.0-40.0); MEAN CELL VOLUME 68.6 fL (80.0-94.0); MEAN CORPUSCULAR HGB CONC 30.6 g/dL (33.0-37.0); MEAN PLATELET VOLUME 7.3 fL (7.2-11.7); MONO # 0.8 K/uL (0.0-0.8); NEUT # 4.7 K/uL (1.8-7.0); NEUT % 62.1 % (50.0-75.0); RBC 4.3 Mil/uL (4.40-5.90); RED CELL DISTRIBUTION WIDTH 18.8 % (11.5-14.5); WHITE BLOOD COUNT 7.6 K/uL (4.8-10.8)
[2018-02-26 08:47] LABS: ALB/GLOB RATIO 1.3 (1.0-2.1); ALBUMIN 3.7 g/dL (3.5-5.0); ALT/SGPT 32 U/L (21-72); AST/SGOT 25 U/L (17-59); BLOOD UREA NITROGEN 13 mg/dL (9-20); CALCIUM 8.9 mg/dl (8.6-10.4); GFR NON-AFRICAN AMERICAN > 60
[2018-02-26] MEDS: Pantoprazole 40 mg EC Tab PO SCH (09:41)
[2018-02-26] MEDS: Enoxaparin 40 mg Syringe SC SCH (09:41)
[2018-02-26] MEDS: Azithromycin 500 MG in Sodium Chloride 0.9% 250 ML IVPB SCH (09:42)
--- NOTE | 2018-02-26 10:25 | RAD ---
HISTORY: SOB COMPARISON: Chest x-ray performed 09/08/17 TECHNIQUE: Chest, one view. FINDINGS: Examination limited by habitus. Interval removal of left-sided pigtail catheter. LUNGS: Bilateral hilar prominence. Mild bibasilar atelectasis. Left lower lobe infiltrate/edema. Small left pleural effusion. Both costophrenic angles are incompletely imaged. No definite pneumothorax. CARDIOVASCULAR: Cardiomegaly. OSSEOUS STRUCTURES: Degenerative changes. Osseous demineralization. VISUALIZED UPPER ABDOMEN: Unremarkable. OTHER FINDINGS: None. IMPRESSION: Interval removal left pigtail catheter. Bilateral hilar prominence. Mild bibasilar atelectasis. Left lower lobe infiltrate/edema. Small left pleural effusion. Both costophrenic angles are incompletely imaged. No definite pneumothorax.
--- NOTE | 2018-02-26 11:39 | CARD ---
APPROVED REPORT Date of service: 02/25/2018 EKG Measurement Heart [id number] <Conclusion> Sinus tachycardia Nonspecific ST abnormality Abnormal ECG
--- NOTE | 2018-02-26 17:09 | CP.PCM.CON ---
History of Present Illness - History of Present Illness History of Present Illness: reason for consultation: shortness of breath 62-year-old maleLong history of smoking presented to emergency room with worsening shortness of breath. Patient has a history of pleural effusion pigtail catheter insertion in September 2017 and later signed out AGAINST MEDICAl advice and refused bronchoscopy Review of Systems - Review of Systems All systems: reviewed and no additional remarkable complaints except (shortness of breath) Past Patient History - Past Medical History & Family History Past Medical History?: Yes - Past Social History Smoking Status: Heavy Smoker > 10 Cigarettes Daily - CARDIAC Hx Cardiac Disorders: No - PULMONARY Hx Chronic Obstructive Pulmonary Disease (COPD): Yes - NEUROLOGICAL Hx Neurological Disorder: No - HEENT Hx HEENT Problems: No - RENAL Hx Chronic Kidney Disease: No - ENDOCRINE/METABOLIC Hx Endocrine Disorders: No - HEMATOLOGICAL/ONCOLOGICAL Hx Blood Disorders: No - INTEGUMENTARY Hx Dermatological Problems: No - MUSCULOSKELETAL/RHEUMATOLOGICAL Hx Falls: No - GASTROINTESTINAL Hx Gastrointestinal Disorders: No - GENITOURINARY/GYNECOLOGICAL Hx Genitourinary Disorders: No - PSYCHIATRIC Hx Substance Use: No - SURGICAL HISTORY Hx Surgeries: Yes Hx Orthopedic Surgery: Yes (Lt elbow) - ANESTHESIA Hx Anesthesia: Yes Hx Anesthesia Reactions: No Meds Allergies/Adverse Reactions: Allergies Allergy/AdvReac Type Severity Reaction Status Date / Time No Known Allergies Allergy Verified 09/05/17 16:49 - Medications Medications: Current Medications Albuterol/Ipratropium (Duoneb 3 Mg/0.5 Mg (3 Ml) Ud) 3 ml INH RQ6 [facility] Last Admin: 02/26/18 01:35 Dose: 3 ml Alprazolam (Xanax) 1 mg PO DAILY [facility] Last Admin: 02/26/18 09:41 Dose: 1 mg Enoxaparin Sodium (Lovenox) 40 mg SC DAILY [facility] Last Admin: 02/26/18 09:41 Dose: 40 mg Azithromycin 500 mg/ Sodium (Chloride) 250 mls @ 250 mls/hr IVPB DAILY [facility]; Protocol Last Admin: 02/26/18 09:42 Dose: 250 mls/hr Ceftriaxone Sodium 1 gm/ (Sodium Chloride) 100 mls @ 100 mls/hr IVPB DAILY [facility]; Protocol Last Admin: 02/26/18 09:41 Dose: 100 mls/hr Montelukast Sodium (Singulair) 10 mg PO HS [facility] Oxycodone/Acetaminophen (Percocet 5/325 Mg Tab) 1 tab PO Q6H PRN PRN Reason: pain Stop: 02/28/18 23:46 Last Admin: 02/26/18 15:53 Dose: 1 tab Pantoprazole Sodium (Protonix Ec Tab) 40 mg PO DAILY [facility] Last Admin: 02/26/18 09:41 Dose: 40 mg Pneumococcal Polyvalent Vaccine (Pneumovax 23 Vaccine) 0.5 ml IM .ONCE ONE Stop: 02/27/18 10:01 Physical Exam - Head Exam Head Exam: ATRAUMATIC, NORMOCEPHALIC - ENT Exam ENT Exam: Mucous Membranes Moist - Neck Exam Neck exam: Positive for: Normal Inspection - Respiratory Exam Respiratory Exam: Rales, Rhonchi - Cardiovascular Exam Cardiovascular Exam: REGULAR RHYTHM - GI/Abdominal Exam GI & Abdominal Exam: Normal Bowel Sounds, Soft - Extremities Exam Extremities exam: Positive for: normal inspection Results - Vital Signs Recent Vital Signs: Last Vital Signs Temp 97.6 F 02/26/18 15:56 Pulse 87 02/26/18 15:56 Resp 20 02/26/18 15:56 BP 124/77 02/26/18 15:56 Pulse Ox 99 02/26/18 15:56 - Labs Result Diagrams: 02/26/18 13:48 02/26/18 08:18 Labs: Laboratory Results - last 24 hr 02/25/18 02/25/18 02/25/18 20:17 20:17 20:17 WBC 7.8 RBC 5.44 Hgb 11.5 L Hct 37.0 MCV 70.0 L D MCH 21.2 L MCHC 30.3 L RDW 18.5 H Plt Count 528 H MPV 7.6 Neut % (Auto) 64.3 Lymph % (Auto) 26.1 [place] % (Auto) 7.4 Eos % (Auto) 1.1 Baso % (Auto) 1.1 Neut # (Auto) 5.0 Lymph # (Auto) 2.0 [place] # (Auto) 0.6 Eos # (Auto) 0.1 Baso # (Auto) 0.1 Differential Comment PT 11.3 INR 1.0 APTT 48 H pO2 VBG pH VBG pCO2 VBG HCO3 VBG Total CO2 VBG O2 Sat (Calc) VBG Base Excess VBG Potassium Glucose Lactate Crit Value Called To Crit Value Called By Crit Value Read Back Blood Gas Notified Time Sodium 138 Potassium 4.4 Chloride 96 L Carbon Dioxide 30 Anion Gap 16 BUN 17 Creatinine 0.9 Est GFR ( Amer) > 60 Est GFR (Non-Af Amer) > 60 Random Glucose 119 H Calcium 9.8 Magnesium 1.9 Total Bilirubin 0.6 AST 45 ALT 30 Alkaline Phosphatase 145 H D NT-Pro-B Natriuret Pep 140 Total Protein 8.6 H Albumin 4.7 Globulin 3.9 Albumin/Globulin Ratio 1.2 Venous Blood Potassium 02/25/18 02/26/18 02/26/18 20:36 08:18 08:18 WBC 7.6 RBC 4.30 L Hgb 9.0 L D Hct 29.5 L MCV 68.6 L MCH 21.0 L MCHC 30.6 L RDW 18.8 H Plt Count 442 H MPV 7.3 Neut % (Auto) 62.1 Lymph % (Auto) 25.3 [place] % (Auto) 10.0 Eos % (Auto) 1.4 Baso % (Auto) 1.2 Neut # (Auto) 4.7 Lymph # (Auto) 1.9 [place] # (Auto) 0.8 Eos # (Auto) 0.1 Baso # (Auto) 0.1 Differential Comment PT INR APTT pO2 24 L VBG pH 7.36 VBG pCO2 23 L VBG HCO3 15.2 VBG Total CO2 13.7 L VBG O2 Sat (Calc) 47.9 VBG Base Excess -10.4 L VBG Potassium 1.6 L* Glucose 52 L Lactate 0.9 Crit Value Called To Dr. lazo Crit Value Called By Last lara Crit Value Read Back Y Blood Gas Notified Time 2039 Sodium 153.0 H 140 Potassium 3.6 Chloride 131.0 H 100 Carbon Dioxide 31 H Anion Gap 13 BUN 13 Creatinine 0.7 L Est GFR ( Amer) > 60 Est GFR (Non-Af Amer) > 60 Random Glucose 114 H Calcium 8.9 Magnesium Total Bilirubin 0.3 AST 25 ALT 32 Alkaline Phosphatase 108 NT-Pro-B Natriuret Pep Total Protein 6.6 Albumin 3.7 Globulin 2.9 Albumin/Globulin Ratio 1.3 Venous Blood Potassium 1.6 L* 02/26/18 13:48 WBC RBC Hgb 9.1 L Hct MCV MCH MCHC RDW Plt Count MPV Neut % (Auto) Lymph % (Auto) [place] % (Auto) Eos % (Auto) Baso % (Auto) Neut # (Auto) Lymph # (Auto) [place] # (Auto) Eos # (Auto) Baso # (Auto) Differential Comment PT INR APTT pO2 VBG pH VBG pCO2 VBG HCO3 VBG Total CO2 VBG O2 Sat (Calc) VBG Base Excess VBG Potassium Glucose Lactate Crit Value Called To Crit Value Called By Crit Value Read Back Blood Gas Notified Time Sodium Potassium Chloride Carbon Dioxide Anion Gap BUN Creatinine Est GFR ( Amer) Est GFR (Non-Af Amer) Random Glucose Calcium Magnesium Total Bilirubin AST ALT Alkaline Phosphatase NT-Pro-B Natriuret Pep Total Protein Albumin Globulin Albumin/Globulin Ratio Venous Blood Potassium Assessment & Plan (1) COPD exacerbation Status: Acute Comment: nebulizer treatment, steroids. CAT scan of the chest. History of pleural effusion and long history of smoking
--- NOTE | 2018-02-26 22:10 | CP.PCM.PN ---
Subjective - Date & Time of Evaluation Date of Evaluation: 02/26/18 Time of Evaluation: 10:45 - Subjective Subjective: clinically same Objective - Vital Signs/Intake and Output Vital Signs (last 24 hours): Temp Pulse Resp BP Pulse Ox 97.6 F 86 20 124/77 99 02/26/18 15:56 02/26/18 16:00 02/26/18 15:56 02/26/18 15:56 02/26/18 15:56 - Medications Medications: Current Medications Albuterol/Ipratropium (Duoneb 3 Mg/0.5 Mg (3 Ml) Ud) 3 ml INH RQ6 [facility] Last Admin: 02/26/18 20:08 Dose: 3 ml Alprazolam (Xanax) 1 mg PO DAILY [facility] Last Admin: 02/26/18 09:41 Dose: 1 mg Enoxaparin Sodium (Lovenox) 40 mg SC DAILY [facility] Last Admin: 02/26/18 09:41 Dose: 40 mg Fluticasone/Vilanterol (Breo Ellipta 100-25 Mcg Inh) 1 puff INH RQD [facility] Azithromycin 500 mg/ Sodium (Chloride) 250 mls @ 250 mls/hr IVPB DAILY [facility]; Protocol Last Admin: 02/26/18 09:42 Dose: 250 mls/hr Ceftriaxone Sodium 1 gm/ (Sodium Chloride) 100 mls @ 100 mls/hr IVPB DAILY [facility]; Protocol Last Admin: 02/26/18 09:41 Dose: 100 mls/hr Montelukast Sodium (Singulair) 10 mg PO HS [facility] Last Admin: 02/26/18 21:29 Dose: 10 mg Oxycodone/Acetaminophen (Percocet 5/325 Mg Tab) 1 tab PO Q6H PRN PRN Reason: pain Stop: 02/28/18 23:46 Last Admin: 02/26/18 21:29 Dose: 1 tab Pantoprazole Sodium (Protonix Ec Tab) 40 mg PO DAILY [facility] Last Admin: 02/26/18 09:41 Dose: 40 mg Pneumococcal Polyvalent Vaccine (Pneumovax 23 Vaccine) 0.5 ml IM .ONCE ONE Stop: 02/27/18 10:01 - Labs Labs: 02/26/18 13:48 02/26/18 08:18 PT 11.3 SECONDS (9.7-12.2) 02/25/18 20:17 INR 1.0 02/25/18 20:17 APTT 48 SECONDS (21-34) H 02/25/18 20:17
[2018-02-27] MEDS: Albuterol-Ipratrop 3 mg / 0.5 (3 ml) UD INH SCH ×4 (01:12→19:30)
[2018-02-27 07:16] LABS: HEMOGLOBIN 9.7 g/dL (12.0-18.0); MEAN CELL VOLUME 67.9 fL (80.0-94.0); MEAN CORPUSCULAR HEMOGLOBIN 21.2 pg (27.0-31.0); MEAN CORPUSCULAR HGB CONC 31.3 g/dL (33.0-37.0); MEAN PLATELET VOLUME 7.2 fL (7.2-11.7); RBC 4.58 Mil/uL (4.40-5.90); RED CELL DISTRIBUTION WIDTH 18.6 % (11.5-14.5); WHITE BLOOD COUNT 8.6 K/uL (4.8-10.8)
[2018-02-27] MEDS: Fluticasone-Vilanterol 100/25mcg Diskus INH SCH (07:30)
[2018-02-27 07:39] LABS: BLOOD UREA NITROGEN 10 mg/dL (9-20); GFR NON-AFRICAN AMERICAN > 60
[2018-02-27] MEDS: Oxycodone/Acetaminophen 5/325 mg Tab PO PRN ×3 (08:04→21:22)
[2018-02-27] MEDS: Azithromycin 500 MG in Sodium Chloride 0.9% 250 ML IVPB SCH (09:35)
[2018-02-27] MEDS: Enoxaparin 40 mg Syringe SC SCH (09:36)
[2018-02-27] MEDS: Pantoprazole 40 mg EC Tab PO SCH (09:36)
[2018-02-27] MEDS ORDERED: Pneumococcal 23-Valent Vaccine IM ONE (10:00)
--- NOTE | 2018-02-27 16:24 | CP.PCM.PN ---
Subjective - Date & Time of Evaluation Date of Evaluation: 02/27/18 Time of Evaluation: 10:45 - Subjective Subjective: clinically same Objective - Vital Signs/Intake and Output Vital Signs (last 24 hours): Temp Pulse Resp BP Pulse Ox 98.9 F 90 18 138/78 94 L 02/27/18 07:30 02/27/18 08:47 02/27/18 07:30 02/27/18 07:30 02/27/18 07:30 Intake and Output: 02/27/18 02/27/18 06:59 18:59 Intake Total 480 Balance 480 - Medications Medications: Current Medications Albuterol/Ipratropium (Duoneb 3 Mg/0.5 Mg (3 Ml) Ud) 3 ml INH RQ6 [facility] Last Admin: 02/27/18 13:30 Dose: 3 ml Alprazolam (Xanax) 1 mg PO DAILY [facility] Last Admin: 02/27/18 09:36 Dose: 1 mg Enoxaparin Sodium (Lovenox) 40 mg SC DAILY [facility] Last Admin: 02/27/18 09:36 Dose: 40 mg Fluticasone/Vilanterol (Breo Ellipta 100-25 Mcg Inh) 1 puff INH RQD [facility] Last Admin: 02/27/18 07:30 Dose: Not Given Montelukast Sodium (Singulair) 10 mg PO HS [facility] Last Admin: 02/26/18 21:29 Dose: 10 mg Oxycodone/Acetaminophen (Percocet 5/325 Mg Tab) 1 tab PO Q6H PRN PRN Reason: pain Stop: 02/28/18 23:46 Last Admin: 02/27/18 14:58 Dose: 1 tab Pantoprazole Sodium (Protonix Ec Tab) 40 mg PO DAILY [facility] Last Admin: 02/27/18 09:36 Dose: 40 mg - Labs Labs: 02/27/18 07:11 02/27/18 07:11 PT 11.3 SECONDS (9.7-12.2) 02/25/18 20:17 INR 1.0 02/25/18 20:17 APTT 48 SECONDS (21-34) H 02/25/18 20:17 - Constitutional Appears: Well - Head Exam Head Exam: ATRAUMATIC, NORMAL INSPECTION, NORMOCEPHALIC - Eye Exam Eye Exam: EOMI, Normal appearance, PERRL Pupil Exam: NORMAL ACCOMODATION, PERRL - ENT Exam ENT Exam: Mucous Membranes Moist, Normal Exam - Neck Exam Neck Exam: Full ROM, Normal Inspection. absent: Lymphadenopathy - Respiratory Exam Respiratory Exam: Decreased Breath Sounds - Cardiovascular Exam Cardiovascular Exam: REGULAR RHYTHM, +S1, +S2 - GI/Abdominal Exam GI & Abdominal Exam: Soft, Diminished Bowel Sounds - Rectal Exam Rectal Exam: Deferred
--- NOTE | 2018-02-27 17:19 | CP.PCM.PN ---
Subjective - Date & Time of Evaluation Date of Evaluation: 02/27/18 Time of Evaluation: 12:20 - Subjective Subjective: patient seen and examined Still complaining of wheezing, cough and shortness of breath Objective - Vital Signs/Intake and Output Vital Signs (last 24 hours): Temp Pulse Resp BP Pulse Ox 98.2 F 79 20 118/76 97 02/27/18 15:14 02/27/18 15:14 02/27/18 15:14 02/27/18 15:14 02/27/18 15:14 Intake and Output: 02/27/18 02/27/18 06:59 18:59 Intake Total 480 Balance 480 - Medications Medications: Current Medications Albuterol/Ipratropium (Duoneb 3 Mg/0.5 Mg (3 Ml) Ud) 3 ml INH RQ6 [facility] Last Admin: 02/27/18 13:30 Dose: 3 ml Alprazolam (Xanax) 1 mg PO DAILY [facility] Last Admin: 02/27/18 09:36 Dose: 1 mg Enoxaparin Sodium (Lovenox) 40 mg SC DAILY [facility] Last Admin: 02/27/18 09:36 Dose: 40 mg Fluticasone/Vilanterol (Breo Ellipta 100-25 Mcg Inh) 1 puff INH RQD [facility] Last Admin: 02/27/18 07:30 Dose: Not Given Montelukast Sodium (Singulair) 10 mg PO HS [facility] Last Admin: 02/26/18 21:29 Dose: 10 mg Oxycodone/Acetaminophen (Percocet 5/325 Mg Tab) 1 tab PO Q6H PRN PRN Reason: pain Stop: 02/28/18 23:46 Last Admin: 02/27/18 14:58 Dose: 1 tab Pantoprazole Sodium (Protonix Ec Tab) 40 mg PO DAILY [facility] Last Admin: 02/27/18 09:36 Dose: 40 mg - Labs Labs: 02/27/18 07:11 02/27/18 07:11 PT 11.3 SECONDS (9.7-12.2) 02/25/18 20:17 INR 1.0 02/25/18 20:17 APTT 48 SECONDS (21-34) H 02/25/18 20:17 - Head Exam Head Exam: ATRAUMATIC, NORMOCEPHALIC - Eye Exam Eye Exam: Normal appearance - ENT Exam ENT Exam: Mucous Membranes Moist - Respiratory Exam Respiratory Exam: Rhonchi, Wheezes - Cardiovascular Exam Cardiovascular Exam: REGULAR RHYTHM - GI/Abdominal Exam GI & Abdominal Exam: Soft, Normal Bowel Sounds Assessment and Plan (1) COPD exacerbation Assessment & Plan: IV steroids Nebulizer treatment CAT scan of the chest as patient has history of pleural effusion and active smoking Status: Acute
[2018-02-27] MEDS: MethylPREDNISolone 40 mg Vial IV SCH ×2 (18:15→21:23)
--- NOTE | 2018-02-27 19:00 | CT ---
Date of service: 02/27/2018 PROCEDURE: CT Chest without contrast HISTORY: pleural effusion COMPARISON: 09/08/2017 CT thorax TECHNIQUE: Contiguous axial images were obtained through the chest without intravenous contrast enhancement. Sagittal and coronal reconstructions were performed. Radiation dose (DLP): 67.14 mGy-cm. This CT exam was performed using one or more of the following dose reduction techniques: Automated exposure control, adjustment of the mA and/or kV according to patient size, and/or use of iterative reconstruction technique. FINDINGS: LUNGS: Re-expansion of the left lung including lingula and resolution of left pleural effusion. Spiculated mass in the lingula 2.3 cm. Solid well-circumscribed mass left lower lobe 9 x 13 mm. Innumerable, additional smaller lower lobe pulmonary nodules. MEDIASTINUM: Unremarkable thoracic aorta. No aneurysm. Normal sized heart. Main pulmonary artery unremarkable. No vascular congestion. No lymphadenopathy. PLEURA: Near complete resolution left pleural effusion. BONES: Lytic lesion involving the posterior lateral right 6th rib without visible pathologic fracture. UPPER ABDOMEN: Progressive enlargement of both adrenal glands particularly the right suspicious for metastatic disease. OTHER FINDINGS: None. IMPRESSION: Innumerable pulmonary nodules in both lungs. The preponderance of these are less than 1 cm. The largest spiculated mass resides in the lingula measuring 2.3 x 2.2 cm. Progression compared to the prior study 09/08/2017. Small residual pleural disease on the left. Osseous metastatic disease.
[2018-02-28] MEDS: Albuterol-Ipratrop 3 mg / 0.5 (3 ml) UD INH SCH ×4 (01:14→19:36)
[2018-02-28] MEDS: MethylPREDNISolone 40 mg Vial IV SCH ×2 (06:10→14:09)
[2018-02-28] MEDS: Oxycodone/Acetaminophen 5/325 mg Tab PO PRN ×2 (06:16→14:24)
[2018-02-28] MEDS: Fluticasone-Vilanterol 100/25mcg Diskus INH SCH (08:46)
[2018-02-28] MEDS: Enoxaparin 40 mg Syringe SC SCH (09:42)
[2018-02-28] MEDS: Pantoprazole 40 mg EC Tab PO SCH (09:42)
--- NOTE | 2018-02-28 10:47 | CP.PCM.PN ---
Subjective - Date & Time of Evaluation Date of Evaluation: 02/28/18 Time of Evaluation: 11:30 - Subjective Subjective: clinically same Objective - Vital Signs/Intake and Output Vital Signs (last 24 hours): Temp Pulse Resp BP Pulse Ox 98.0 F 100 H 18 144/76 94 L 02/28/18 07:23 02/28/18 08:27 02/28/18 07:23 02/28/18 07:23 02/28/18 07:23 Intake and Output: 02/28/18 02/28/18 06:59 18:59 Intake Total 400 Balance 400 - Medications Medications: Current Medications Albuterol/Ipratropium (Duoneb 3 Mg/0.5 Mg (3 Ml) Ud) 3 ml INH RQ6 [facility] Last Admin: 02/28/18 08:46 Dose: 3 ml Alprazolam (Xanax) 1 mg PO DAILY [facility] Last Admin: 02/28/18 09:42 Dose: 1 mg Enoxaparin Sodium (Lovenox) 40 mg SC DAILY [facility] Last Admin: 02/28/18 09:42 Dose: 40 mg Fluticasone/Vilanterol (Breo Ellipta 100-25 Mcg Inh) 1 puff INH RQD [facility] Last Admin: 02/28/18 08:46 Dose: 1 puff Methylprednisolone (Solu-Medrol) 60 mg IV Q8 [facility] Last Admin: 02/28/18 06:10 Dose: 60 mg Montelukast Sodium (Singulair) 10 mg PO HS [facility] Last Admin: 02/27/18 21:23 Dose: 10 mg Oxycodone/Acetaminophen (Percocet 5/325 Mg Tab) 1 tab PO Q6H PRN PRN Reason: pain Stop: 02/28/18 23:46 Last Admin: 02/28/18 06:16 Dose: 1 tab Pantoprazole Sodium (Protonix Ec Tab) 40 mg PO DAILY [facility] Last Admin: 02/28/18 09:42 Dose: 40 mg - Labs Labs: 02/27/18 07:11 02/27/18 07:11 PT 11.3 SECONDS (9.7-12.2) 02/25/18 20:17 INR 1.0 02/25/18 20:17 APTT 48 SECONDS (21-34) H 02/25/18 20:17 - Constitutional Appears: Well - Head Exam Head Exam: ATRAUMATIC, NORMAL INSPECTION, NORMOCEPHALIC - Eye Exam Eye Exam: EOMI, Normal appearance, PERRL Pupil Exam: NORMAL ACCOMODATION, PERRL - ENT Exam ENT Exam: Mucous Membranes Moist, Normal Exam - Neck Exam Neck Exam: Full ROM, Normal Inspection. absent: Lymphadenopathy - Respiratory Exam Respiratory Exam: Decreased Breath Sounds - Cardiovascular Exam Cardiovascular Exam: REGULAR RHYTHM, +S1, +S2 - GI/Abdominal Exam GI & Abdominal Exam: Soft, Diminished Bowel Sounds - Rectal Exam Rectal Exam: Deferred
--- NOTE | 2018-02-28 14:22 | CP.PCM.PN ---
Subjective - Date & Time of Evaluation Date of Evaluation: 02/28/18 Time of Evaluation: 09:00 - Subjective Subjective: patient seen and examined Patient states breathing and cough much improved CAT scan of the chest showed lung nodule Objective - Vital Signs/Intake and Output Vital Signs (last 24 hours): Temp Pulse Resp BP Pulse Ox 98.0 F 86 18 144/76 94 L 02/28/18 07:23 02/28/18 12:53 02/28/18 07:23 02/28/18 07:23 02/28/18 07:23 Intake and Output: 02/28/18 02/28/18 06:59 18:59 Intake Total 400 Balance 400 - Medications Medications: Current Medications Albuterol/Ipratropium (Duoneb 3 Mg/0.5 Mg (3 Ml) Ud) 3 ml INH RQ6 [facility] Last Admin: 02/28/18 13:31 Dose: 3 ml Alprazolam (Xanax) 1 mg PO DAILY [facility] Last Admin: 02/28/18 09:42 Dose: 1 mg Enoxaparin Sodium (Lovenox) 40 mg SC DAILY [facility] Last Admin: 02/28/18 09:42 Dose: 40 mg Fluticasone/Vilanterol (Breo Ellipta 100-25 Mcg Inh) 1 puff INH RQD [facility] Last Admin: 02/28/18 08:46 Dose: 1 puff Methylprednisolone (Solu-Medrol) 60 mg IV Q8 [facility] Last Admin: 02/28/18 14:09 Dose: 60 mg Montelukast Sodium (Singulair) 10 mg PO HS [facility] Last Admin: 02/27/18 21:23 Dose: 10 mg Oxycodone/Acetaminophen (Percocet 5/325 Mg Tab) 1 tab PO Q6H PRN PRN Reason: pain Stop: 02/28/18 23:46 Last Admin: 02/28/18 06:16 Dose: 1 tab Pantoprazole Sodium (Protonix Ec Tab) 40 mg PO DAILY [facility] Last Admin: 02/28/18 09:42 Dose: 40 mg - Labs Labs: 02/27/18 07:11 02/27/18 07:11 PT 11.3 SECONDS (9.7-12.2) 02/25/18 20:17 INR 1.0 02/25/18 20:17 APTT 48 SECONDS (21-34) H 02/25/18 20:17 - Head Exam Head Exam: ATRAUMATIC, NORMOCEPHALIC - ENT Exam ENT Exam: Mucous Membranes Moist - Neck Exam Neck Exam: Normal Inspection - Respiratory Exam Respiratory Exam: Clear to Ausculation Bilateral - Cardiovascular Exam Cardiovascular Exam: REGULAR RHYTHM Assessment and Plan (1) COPD exacerbation Assessment & Plan: Switch to p.o. prednisone Rescue inhaler Antibiotics Status: Acute (2) Lung nodule < 6cm on CT Assessment & Plan: patient refusing lung biopsy and wants to get second opinion as outpatient Risks explained to patient which he understood patient advised to stop smoking Status: Acute
[2018-02-28 15:50] VITALS: BP 124/74; PULSE 99; RESP 20; TEMP 98.6; O2SAT 95
== END 2018-02-28 19:45 | disposition left against medical advice (07) | DRG 192 ==
LOC: C.ER 19:21 → C.9E 21:59 → C.6T 22:48
PROVIDERS: ADMIT Internal Medicine Nephrology; ATTEND Internal Medicine Nephrology
DX: J44.1 Chronic obstructive pulmonary disease with (acute) exacerbation (principal); F17.210 Nicotine dependence, cigarettes, uncomplicated

== ENCOUNTER 2018-07-03 10:24 | Emergency (ER) | payer BC, OTHER ==
--- NOTE | 2018-07-03 10:47 | C.PDOC ---
History Of Present Illness 62 year old male, with no previous surgery, comes in to ED complaining of left- sided abdominal pain since 2 months ago, radiating to his back. Patient states the pain has been worsening and that it feels different when he stands up. Patient was seen by a doctor and was sent for a colonoscopy and bloodwork, but patient did not go because of the pain. Denies dysuria, swelling, fever, vomiting, diarrhea, GI bleed, or other symptoms. Time Seen by Provider: 07/03/18 10:37 Chief Complaint (Nursing): Abdominal Pain History Per: Patient History/Exam Limitations: no limitations Onset/Duration Of Symptoms: Days Current Symptoms Are (Timing): Still Present Past Medical History Reviewed: Historical Data, Nursing Documentation, Vital Signs Vital Signs: Last Vital Signs Temp 98.5 F 07/03/18 10:32 Pulse 99 H 07/03/18 10:32 Resp 20 07/03/18 10:32 BP 142/90 07/03/18 10:32 Pulse Ox 99 07/03/18 10:32 - Medical History PMH: Back Problems, COPD Denies: Chronic Kidney Disease - [facility] DRAINAGE OF L PLEURAL CAV WITH DRAIN DEV, PERC APPROACH (09/05/17) Family History: States: No Known Family Hx - Social History Hx Tobacco Use: Yes Hx Alcohol Use: No Hx Substance Use: No - Immunization History Hx Tetanus Toxoid Vaccination: No Hx Influenza Vaccination: No Hx Pneumococcal Vaccination: No Review Of Systems Except As Marked, All Systems Reviewed And Found Negative. Constitutional: Negative for: Fever, Chills Cardiovascular: Negative for: Chest Pain Respiratory: Negative for: Shortness of Breath Gastrointestinal: Positive for: Abdominal Pain (LLQ). Negative for: Nausea, Vomiting, Diarrhea Genitourinary: Negative for: Dysuria, Hematuria Physical Exam - Physical Exam Appears: Non-toxic, No Acute Distress Skin: Warm, Dry Head: Atraumatic, Normacephalic Eye(s): bilateral: Normal Inspection Oral Mucosa: Moist Neck: Supple Cardiovascular: Rhythm Regular, No Murmur Respiratory: Normal Breath Sounds, No Rales, No Rhonchi, No Wheezing Gastrointestinal/Abdominal: Soft, Tenderness (to LLQ, moderate), No Rebound Extremity: Bilateral: Atraumatic, Normal Color And Temperature, Normal ROM Neurological/Psych: Oriented x3, Normal Speech ED Course And Treatment - Laboratory Results Result Diagrams: 07/03/18 11:15 07/03/18 11:15 O2 Sat by Pulse Oximetry: 99 (RA) Pulse Ox Interpretation: Normal Medical Decision Making Medical Decision Making: Plan: --Abd/Pel CT --Labs --UA --Omnipaque PO --IV fluids 0.5L --Toradol 30 mg IV --Zofran 4 mg IV Disposition - Disposition Referrals: [facility] [Outside] Disposition: HOME/ ROUTINE Disposition Time: 14:02 Condition: STABLE Additional Instructions: Follow up with the medical doctor within 1-2 days. Return if worsened. Prescriptions: oxyCODONE/Acetaminophen [Percocet 5/325 mg Tab] 1 tab PO QID PRN #15 tab PRN Reason: Pain Instructions: Colon and Rectal Cancer (DC) Forms: Examify (Nepali) - Clinical Impression Clinical Impression: Abdominal pain, Intestinal mass - PA / ESTATE CONSERVATOR / Resident Statement MD/DO has reviewed & agrees with the documentation as recorded. - Scribe Statement The provider has reviewed the documentation as recorded by the Scribe Emily Kumar All medical record entries made by the Scribgm were at my direction and personally dictated by me. I have reviewed the chart and agree that the record accurately reflects my personal performance of the history, physical exam, medical decision making, and the department course for this patient. I have also personally directed, reviewed, and agree with the discharge instructions and disposition.
[2018-07-03] MEDS ORDERED: Sodium Chloride 0.9% 500 ML IV ONE ×2 (11:07→11:17)
[2018-07-03] MEDS ORDERED: Iohexol 240 (50 ml) PO STA (11:07)
[2018-07-03] MEDS ORDERED: Iohexol 240 (50 ml) ONE (11:17)
[2018-07-03 11:25] LABS: BASO # 0.1 K/uL (0.0-0.2); BASO % 1.1 % (0.0-2.0); EOS # 0.3 K/uL (0.0-0.7); EOS % 3.8 % (0.0-4.0); HEMOGLOBIN 9.5 g/dL (12.0-18.0); LYMPH # 2.7 K/uL (1.0-4.3); LYMPH % 30.2 % (20.0-40.0); MEAN CORPUSCULAR HEMOGLOBIN 19.2 pg (27.0-31.0); MEAN CORPUSCULAR HGB CONC 30.2 g/dL (33.0-37.0); MEAN PLATELET VOLUME 7.5 fL (7.2-11.7); MONO # 0.6 K/uL (0.0-0.8); MONO % 6.3 % (0.0-10.0); NEUT # 5.3 K/uL (1.8-7.0); NEUT % 58.6 % (50.0-75.0); RBC 4.93 Mil/uL (4.40-5.90); RED CELL DISTRIBUTION WIDTH 19.2 % (11.5-14.5); WHITE BLOOD COUNT 9.1 K/uL (4.8-10.8)
[2018-07-03 11:26] LABS: MEAN CELL VOLUME 63.7 fL (80.0-94.0)
[2018-07-03 11:39] LABS: SQUAMOUS EPITHIAL < 1 /hpf (0-5); URINE BILIRUBIN NEGATIVE (NEGATIVE); URINE BLOOD NEGATIVE (NEGATIVE); URINE CLARITY Clear (Clear); URINE COLOR Amber (YELLOW); URINE GLUCOSE (UA) NORMAL (Normal); URINE LEUKOCYTE ESTERASE TRACE Leu/uL (Negative); URINE PROTEIN 1+ mg/dL (NEGATIVE)
[2018-07-03 12:03] LABS: ALB/GLOB RATIO 1.3 (1.0-2.1); ALBUMIN 4.1 g/dL (3.5-5.0); ALT/SGPT 26 U/L (21-72); AST/SGOT 28 U/L (17-59); BLOOD UREA NITROGEN 16 mg/dL (9-20); CALCIUM 9.1 mg/dl (8.6-10.4); GFR NON-AFRICAN AMERICAN > 60; LIPASE 32 U/L (23-300)
[2018-07-03] MEDS ORDERED: Iodixanol 320 MG/ML 100 ML BOTTLE IV ONE (12:42)
[2018-07-03] MEDS ORDERED: Morphine 4 MG/ML VIAL ONE (13:13)
[2018-07-03 13:19] VITALS: PULSE 80; RESP 18
--- NOTE | 2018-07-03 13:39 | CT ---
Date of service: 07/03/2018 PROCEDURE: CT Abdomen and Pelvis with contrast HISTORY: abd pain COMPARISON: None. TECHNIQUE: Contrast dose: Radiation dose: Total exam DLP = 964.17 mGy-cm. This CT exam was performed using one or more of the following dose reduction techniques: Automated exposure control, adjustment of the mA and/or kV according to patient size, and/or use of iterative reconstruction technique. FINDINGS: LOWER THORAX: Multiple bibasilar pulmonary nodules. LIVER: Multiple hepatic masses measuring up to 5.5 centimeters. GALLBLADDER AND BILE DUCTS: Unremarkable. PANCREAS: Unremarkable. No gross lesion or ductal dilatation. SPLEEN: Unremarkable. ADRENALS: Bilateral adrenal masses measuring up to 2.8 centimeters on the right. KIDNEYS AND URETERS: Unremarkable. No hydronephrosis. No solid mass. VASCULATURE: Unremarkable. No aortic aneurysm. No aortic atherosclerotic calcification or mural plaque present. BOWEL: Lobulated 4.6 centimeter mass in the intraluminal portion of the cecum suspicious for primary malignancy. APPENDIX: Normal appendix. PERITONEUM: Unremarkable. No free fluid. No free air. LYMPH NODES: Unremarkable. No enlarged lymph nodes. BLADDER: Unremarkable. REPRODUCTIVE: Unremarkable. BONES: No acute fracture. OTHER FINDINGS: None. IMPRESSION: 4.6 centimeter intraluminal mass within the cecum suspicious for primary adenocarcinoma. Numerous pulmonary, hepatic and adrenal metastases.
[2018-07-03 14:05] VITALS: O2SAT 99
[2018-07-03 14:38] VITALS: BP 136/77; TEMP 98.9
== END 2018-07-03 14:36 | disposition home or self-care (01) ==
LOC: C.ER 10:24
DX: R10.9 Unspecified abdominal pain (principal); K63.89 Other specified diseases of intestine; Z72.0 Tobacco use; J44.9 Chronic obstructive pulmonary disease, unspecified
CPT/HCPCS: 74177; 80053; 81001; 83690; 85025; 87086; 96374; 96375; 99285; J1885; J2270; J2405; J7040; Q9966; Q9967

== ENCOUNTER 2018-07-21 07:19 | Day surgery (SDC) | payer OTHER ==
[2018-07-21 07:39] VITALS: BMI 24.7
[2018-07-21] MEDS ORDERED: Lactated Ringer's 1,000 ML IV ONE (08:40)
[2018-07-21] MEDS ORDERED: Propofol 10 mg/ml Inj (20 ML) ONE ×2 (08:46→09:15)
[2018-07-21] MEDS ORDERED: Lactated Ringer's 500 ML IV SCH (09:00)
[2018-07-21 09:45] VITALS: TEMP 98.6
[2018-07-21 10:21] VITALS: O2SAT 100
[2018-07-21] MEDS ORDERED: Oxycodone/Acetaminophen 5/325 mg Tab PO ONE (10:30)
[2018-07-21 11:51] VITALS: BP 148/78; PULSE 78; RESP 14
== END 2018-07-21 11:45 | disposition home or self-care (01) ==
LOC: C.ENDO 07:19
PROVIDERS: ATTEND Internal Medicine Gastroenterology
DX: K63.9 Disease of intestine, unspecified (principal); D12.0 Benign neoplasm of cecum; D12.5 Benign neoplasm of sigmoid colon; K64.8 Other hemorrhoids
CPT/HCPCS: 45385; 88305; J2001; J2704; J7120

== ENCOUNTER 2018-07-29 13:36 | Outpatient (CLI) | payer OTHER | END 2018-07-29 13:37 | disposition home or self-care (01) | LOC: C.PAT 13:36 | DX: C18.9 Malignant neoplasm of colon, unspecified (principal) ==

== ENCOUNTER 2018-08-03 13:37 | Inpatient (IN) | payer OTHER ==
[2018-08-03 13:37] VITALS: BMI 23.8
--- NOTE | 2018-08-03 14:32 | C.PDOC ---
History Of Present Illness 62 years old male with PMHx of colon CA, presents to ED for evaluation of lower abdominal pain that began few days ago. Patient reports he was sent to ED for evaluation by PMD. Denies any other physical complaints. Time Seen by Provider: 08/03/18 14:08 Chief Complaint (Nursing): Abdominal Pain History Per: Patient History/Exam Limitations: no limitations Onset/Duration Of Symptoms: Days Current Symptoms Are (Timing): Still Present Location Of Pain/Discomfort: RLQ, LLQ Radiation Of Pain To:: None Associated Symptoms: denies: Fever, Chills, Nausea, Vomiting, Diarrhea Exacerbating Factors: None Alleviating Factors: None Last Bowel Movement: Today Recent travel outside of the [place]: No Past Medical History Reviewed: Historical Data, Nursing Documentation, Vital Signs Vital Signs: Last Vital Signs Temp 97.5 F L 08/03/18 13:59 Pulse 107 H 08/03/18 13:59 Resp 18 08/03/18 13:59 BP 108/64 08/03/18 13:59 Pulse Ox 97 08/03/18 13:59 - Medical History PMH: Back Problems, COPD (NOT SURE IF ITS COPD) Denies: Chronic Kidney Disease - [facility] Procedures DRAINAGE OF L PLEURAL CAV WITH DRAIN DEV, PERC APPROACH (09/05/17) Family History: States: Unknown Family Hx - Social History Hx Tobacco Use: Yes Hx Alcohol Use: No Hx Substance Use: No - Immunization History Hx Tetanus Toxoid Vaccination: No Hx Influenza Vaccination: Yes Hx Pneumococcal Vaccination: No Review Of Systems Except As Marked, All Systems Reviewed And Found Negative. Constitutional: Negative for: Fever, Chills Gastrointestinal: Positive for: Abdominal Pain (Lower quadrant ). Negative for: Nausea, Vomiting, Diarrhea Genitourinary: Negative for: Dysuria Skin: Negative for: Rash Neurological: Negative for: Weakness, Numbness Physical Exam - Physical Exam Appears: Non-toxic, No Acute Distress Skin: Normal Color, Warm, Dry, No Rash Head: Atraumatic, Normacephalic Eye(s): bilateral: Normal Inspection, PERRL, EOMI Nose: Normal Oral Mucosa: Moist Throat: Normal Neck: Normal, Normal ROM, Supple Chest: Symmetrical Cardiovascular: Rhythm Regular Respiratory: Normal Breath Sounds, No Rales, No Rhonchi, No Wheezing Gastrointestinal/Abdominal: Soft, Tenderness (Mild lower quadrant ), No Guarding, No Rebound Back: Normal Inspection, No CVA Tenderness Extremity: Normal ROM Extremity: Bilateral: Atraumatic, Normal Color And Temperature, Normal ROM Pulses: Left Radial: Normal, Right Radial: Normal Neurological/Psych: Oriented x3, Normal Speech Gait: Steady ED Course And Treatment - Laboratory Results Result Diagrams: 08/05/18 06:54 08/05/18 06:54 O2 Sat by Pulse Oximetry: 97 (RA) Pulse Ox Interpretation: Normal Medical Decision Making Medical Decision Making: previous imaging with mass. discussed with surgeon. request admission. Plan: * Blood work * Urinalysis * Blood Bank ekg nsr [address] t wave chagnes nomral intervals no inretval change from previous case discussed with surgeon defer further managment to inpt. no medical complaint. Disposition - Disposition Disposition: HOSPITALIZED Disposition Time: 18:00 Condition: STABLE - Clinical Impression Clinical Impression: Abdominal mass, Colonic mass - Scribe Statement The provider has reviewed the documentation as recorded by the Scribe Tom Rivera All medical record entries made by the Scribe were at my direction and personally dictated by me. I have reviewed the chart and agree that the record accurately reflects my personal performance of the history, physical exam, medical decision making, and the department course for this patient. I have also personally directed, reviewed, and agree with the discharge instructions and disposition. Decision To Admit - Pt Status Changed To: Hospital Disposition Of: Inpatient - Admit Certification Admit to Inpatient:: After my assessment, the patient will require hospitalization for at least two midnights. This is because of the severity of symptoms shown, intensity of services needed, and/or the medical risk in this patient being treated as an outpatient. - InPatient: Physician Admission Certification:: needs or - . Bed Request Type: Regular Admitting Physician: Xavier Reynolds Patient Diagnosis: Abdominal mass, Colonic mass
[2018-08-03] MEDS ORDERED: Morphine 4 MG/ML VIAL ONE (15:05)
[2018-08-03] MEDS ORDERED: Sodium Chloride 0.9% 1,000 ML ONE (15:12)
[2018-08-03] MEDS ORDERED: Sodium Chloride 0.9% 1,000 ML IV SCH (15:15)
[2018-08-03 15:35] LABS: BASO # 0.1 K/uL (0.0-0.2); BASO % 1.1 % (0.0-2.0); EOS # 0.4 K/uL (0.0-0.7); EOS % 3.6 % (0.0-4.0); HEMOGLOBIN 9.3 g/dL (12.0-18.0); LYMPH # 2.7 K/uL (1.0-4.3); LYMPH % 26.6 % (20.0-40.0); MEAN CELL VOLUME 64.2 fL (80.0-94.0); MEAN CORPUSCULAR HGB CONC 29.6 g/dL (33.0-37.0); MEAN PLATELET VOLUME 7.6 fL (7.2-11.7); MONO # 0.6 K/uL (0.0-0.8); NEUT # 6.4 K/uL (1.8-7.0); NEUT % 62.7 % (50.0-75.0); RBC 4.9 Mil/uL (4.40-5.90); RED CELL DISTRIBUTION WIDTH 19.6 % (11.5-14.5); WHITE BLOOD COUNT 10.2 K/uL (4.8-10.8)
[2018-08-03] MEDS ORDERED: Erythromycin Stearat 250 mg Tab PO STA (15:38)
[2018-08-03 15:46] LABS: INR 1.1; PROTHROMBIN TIME 12.5 SECONDS (9.7-12.2)
--- NOTE | 2018-08-03 15:47 | CP.PCM.HP ---
<Jeannie Corral - Last Filed: 08/04/18 05:11> History of Present Illness - History of Present Illness History of Present Illness: General Surgery Dr. Reynolds 62 y/o M w/ PMHx of COPD and likely metastatic colon ca diagnosed by colonoscopy on 07/2018 presents to the ED c/o abd pain. On interview, pt refused to answer questions regarding medical history so HPI taken from EMR. Per records, pain started ~[employer], associated w/ decreased appetite and >20lb weight loss. Pt had CT A/P in 07/2018 which was abnormal and pt was referred to GI for colonoscopy. 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 At that time, pt was referred to general surgery. Pt is scheduled for robot-assisted laparoscopic right hemicolectomy and liver Bx tomorrow, 08/04/18; however, pt states pain was too severe to wait and presented to the ED this afternoon (08/03/18). PMHx: see above, herniated disc, anxiety Meds: reviewed in chart NKDA PSHx: L elbow, colonoscopy SHx: 6-10cigs per day; social EtOH; denies drug use FHx: parents , unknown cause Present on Admission - Present on Admission Any Indicators Present on Admission: No Review of Systems - Review of Systems Systems not reviewed;Unavailable: Uncooperative Past Patient History - Past Medical History & Family History Past Medical History?: Yes - Past Social History Smoking Status: Heavy Smoker > 10 Cigarettes Daily - CARDIAC Hx Cardiac Disorders: No - PULMONARY Hx Chronic Obstructive Pulmonary Disease (COPD): Yes (NOT SURE IF ITS COPD) - NEUROLOGICAL Hx Neurological Disorder: No - HEENT Hx HEENT Problems: No - RENAL Hx Chronic Kidney Disease: No - ENDOCRINE/METABOLIC Hx Endocrine Disorders: No - HEMATOLOGICAL/ONCOLOGICAL Hx Blood Disorders: No - INTEGUMENTARY Hx Dermatological Problems: No - MUSCULOSKELETAL/RHEUMATOLOGICAL Other/Comment: LEFT ELBOW INJURY - GASTROINTESTINAL Hx Gastrointestinal Disorders: No Other/Comment: Colon CA - GENITOURINARY/GYNECOLOGICAL Hx Genitourinary Disorders: No - PSYCHIATRIC Hx Substance Use: No - SURGICAL HISTORY Hx Surgeries: Yes Hx Orthopedic Surgery: Yes (Lt elbow) Other/Comment: HAD EPIDURAL SHOT FOR HIS BACK - ANESTHESIA Hx Anesthesia: Yes Hx Anesthesia Reactions: No Meds Allergies/Adverse Reactions: Allergies Allergy/AdvReac Type Severity Reaction Status Date / Time No Known Allergies Allergy Verified 08/03/18 13:55 Physical Exam - Constitutional Appears: Non-toxic, No Acute Distress - Head Exam Head Exam: NORMAL INSPECTION - Eye Exam Eye Exam: Normal appearance - ENT Exam ENT Exam: Mucous Membranes Moist - Respiratory Exam Respiratory Exam: NORMAL BREATHING PATTERN. absent: Accessory Muscle Use, Respiratory Distress - Cardiovascular Exam Cardiovascular Exam: REGULAR RHYTHM. absent: Bradycardia, Tachycardia - GI/Abdominal Exam GI & Abdominal Exam: Soft, Tenderness (mild TTP LLQ). absent: Distended, Firm, Guarding, Rebound, Rigid - Extremities Exam Extremities exam: Positive for: normal inspection - Neurological Exam Neurological exam: Alert, Oriented x3 - Psychiatric Exam Psychiatric exam: Agitated, Anxious, Normal Affect - Skin Skin Exam: Dry, Intact, Normal Color, Warm Results - Vital Signs Recent Vital Signs: Last Vital Signs Temp 97.5 F L 08/03/18 13:59 Pulse 107 H 08/03/18 13:59 Resp 18 08/03/18 13:59 BP 108/64 08/03/18 13:59 Pulse Ox 97 08/03/18 14:35 - Labs Result Diagrams: 08/03/18 15:28 08/03/18 15:28 Labs: Laboratory Results - last 24 hr 08/03/18 08/03/18 15:28 15:28 WBC 10.2 RBC 4.90 Hgb 9.3 L Hct 31.4 L MCV 64.2 L MCH 19.0 L MCHC 29.6 L RDW 19.6 H Plt Count 510 H MPV 7.6 Neut % (Auto) 62.7 Lymph % (Auto) 26.6 [place] % (Auto) 6.0 Eos % (Auto) 3.6 Baso % (Auto) 1.1 Neut # (Auto) 6.4 Lymph # (Auto) 2.7 [place] # (Auto) 0.6 Eos # (Auto) 0.4 Baso # (Auto) 0.1 PT 12.5 H INR 1.1 APTT 29 - Imaging and Cardiology CT scan - abdomen Status: Image reviewed by me, Report reviewed by me Chest x-ray Status: Image reviewed by me Assessment & Plan - Assessment and Plan (Free Text) Assessment: 62 y/o M w/ likely metastatic colon ca to the liver, c/o abd pain Plan: - scheduled for OR 08/04/18 for robotic right andres-colectomy w/ liver Bx - Erythromycin/Neomycin bowel prep (pt completed PEG @home) - CLD & NPO@[place] - type and cross 2units pRBC - f/u AM labs - f/u AM Echo - cont pain management - PMD on consult, appreciate recs - f/u Cardiology recs - GI/DVT PPx - encourage OOB to chair/Amb Pt discussed w/ Dr. Gail Corral DO PGY3 <Xavier Reynolds - Last Filed: 08/10/18 20:25> Results - Vital Signs Recent Vital Signs: Last Vital Signs Temp 98.4 F 08/07/18 15:00 Pulse 97 H 08/07/18 15:00 Resp 20 08/07/18 15:00 BP 100/61 08/07/18 15:00 Pulse Ox 93 L 08/07/18 15:00 - Labs Result Diagrams: 08/07/18 17:27 08/07/18 17:27 Attending/Attestation - Attestation I have personally seen and examined this patient.: Yes I have fully participated in the care of the patient.: Yes I have reviewed all pertinent clinical information: Yes Notes (Text): Pt was seen and examine at bedside Agree with above note and assessment Pt with abdominal pain and large cecal mass with imminent obstruction. Abdomen: Soft, Tender diffusely, Mild distention. Labs and Radiology reviewed Ass: Large cecal mass with abdominal pain with imminent obstruction Hepatic and liver metastasis Plan: Urgent Cardiology clearance Echo in am IV morphine prn OR for Lap/Robotic Hemicolectomy possible open and liver biopsy Consent NPO, IVF Plan d.w pt in detail Risk and benefit explained in detail.
[2018-08-03 15:48] LABS: ALB/GLOB RATIO 1.4 (1.0-2.1); ALT/SGPT 12 U/L (21-72); AST/SGOT 25 U/L (17-59); BLOOD UREA NITROGEN 19 mg/dL (9-20); GFR NON-AFRICAN AMERICAN > 60; LIPASE 31 U/L (23-300)
[2018-08-03] MEDS ORDERED: Erythromycin Stearat 250 mg Tab PO ONE ×3 (17:00→22:00)
[2018-08-03] MEDS ORDERED: Morphine 4 MG/ML VIAL IVP PRN (20:15)
[2018-08-04 01:36] LABS: SPERM URINE RARE /hpf; URINE BACTERIA RARE (<OCC); URINE BILIRUBIN NEGATIVE (NEGATIVE); URINE BLOOD NEGATIVE (NEGATIVE); URINE CLARITY Clear (Clear); URINE COLOR Yellow (YELLOW); URINE GLUCOSE (UA) NORMAL (Normal); URINE HYALINE CAST 0-2 /lpf (0-2); URINE LEUKOCYTE ESTERASE NEG Leu/uL (Negative); URINE PROTEIN NEGATIVE (NEGATIVE); URINE UROBILINOGEN NORMAL mg/dL (0.2-1.0)
[2018-08-04] MEDS: Potassium Ch 20mEq in D5-1/2NS 1,000 ML IV SCH ×3 (02:09→13:51)
[2018-08-04 07:11] LABS: HEMOGLOBIN 9.2 g/dL (12.0-18.0); MEAN CELL VOLUME 63.7 fL (80.0-94.0); MEAN CORPUSCULAR HGB CONC 29.8 g/dL (33.0-37.0); MEAN PLATELET VOLUME 7.2 fL (7.2-11.7); RBC 4.85 Mil/uL (4.40-5.90); RED CELL DISTRIBUTION WIDTH 19.9 % (11.5-14.5); WHITE BLOOD COUNT 9.7 K/uL (4.8-10.8)
[2018-08-04 07:15] LABS: INR 1.2; PROTHROMBIN TIME 13.2 SECONDS (9.7-12.2)
[2018-08-04 07:36] LABS: BLOOD UREA NITROGEN 13 mg/dL (9-20); CALCIUM 8.6 mg/dl (8.6-10.4); GFR NON-AFRICAN AMERICAN > 60
[2018-08-04] MEDS ORDERED: Morphine 4 MG/ML VIAL IVP ONE (09:30)
--- NOTE | 2018-08-04 09:48 | CP.PCM.CON ---
History of Present Illness - History of Present Illness History of Present Illness: 62 y/o man with hx of colon cancer and bowel obstruction planning abdominal surgery today. We are asked for pre-operative cardiac eval and risk assessment. PMHX: smoker, No HTN No DM No prior OK or CVA Occasional xanax use for anxiety Ordinarily patient can perform >4mets of activity without any cardiac complaints. Review of Systems - Review of Systems All systems: reviewed and no additional remarkable complaints except (Abdominal discomfort due to obstructive mass) Past Patient History - Past Medical History & Family History Past Medical History?: Yes - Past Social History Smoking Status: Heavy Smoker > 10 Cigarettes Daily - CARDIAC Hx Cardiac Disorders: No - PULMONARY Hx Chronic Obstructive Pulmonary Disease (COPD): Yes (NOT SURE IF ITS COPD) - NEUROLOGICAL Hx Neurological Disorder: No - HEENT Hx HEENT Problems: No - RENAL Hx Chronic Kidney Disease: No - ENDOCRINE/METABOLIC Hx Endocrine Disorders: No - HEMATOLOGICAL/ONCOLOGICAL Hx Blood Disorders: No - INTEGUMENTARY Hx Dermatological Problems: No - MUSCULOSKELETAL/RHEUMATOLOGICAL Other/Comment: LEFT ELBOW INJURY - GASTROINTESTINAL Hx Gastrointestinal Disorders: No Other/Comment: Colon CA - GENITOURINARY/GYNECOLOGICAL Hx Genitourinary Disorders: No - PSYCHIATRIC Hx Substance Use: No - SURGICAL HISTORY Hx Surgeries: Yes Hx Orthopedic Surgery: Yes (Lt elbow) Other/Comment: HAD EPIDURAL SHOT FOR HIS BACK - ANESTHESIA Hx Anesthesia: Yes Hx Anesthesia Reactions: No Meds Allergies/Adverse Reactions: Allergies Allergy/AdvReac Type Severity Reaction Status Date / Time No Known Allergies Allergy Verified 08/03/18 13:55 - Medications Medications: Current Medications Acetaminophen (Tylenol 325mg Tab) 650 mg PO Q4 PRN PRN Reason: Pain, Mild (1-3) Alprazolam (Xanax) 0.5 mg PO DAILY [facility] Last Admin: 08/04/18 09:41 Dose: Not Given Famotidine (Pepcid) 20 mg IVP DAILY [facility] Last Admin: 08/04/18 06:09 Dose: 20 mg Potassium Chloride/Dextrose/Sod Cl (Potassium Chl 20 Meq In D5-1/2ns) 1,000 mls @ 120 mls/hr IV .Q8H20M [facility] Last Admin: 08/04/18 06:10 Dose: 120 mls/hr Morphine Sulfate (Morphine) 2 mg IVP Q4 PRN PRN Reason: Pain, moderate (4-7) Last Admin: 08/04/18 06:16 Dose: 2 mg Morphine Sulfate (Morphine) 4 mg IVP Q4 PRN PRN Reason: Pain, severe (8-10) Last Admin: 08/03/18 20:21 Dose: 4 mg Ondansetron HCl (Zofran Inj) 4 mg IVP Q4 PRN PRN Reason: Nausea/Vomiting Physical Exam - Head Exam Head Exam: ATRAUMATIC, NORMAL INSPECTION, NORMOCEPHALIC - Eye Exam Eye Exam: EOMI, Normal appearance. absent: Scleral icterus - ENT Exam ENT Exam: Mucous Membranes Moist - Neck Exam Neck exam: Positive for: Full Rom, Normal Inspection. Negative for: Thyromegaly - Respiratory Exam Respiratory Exam: NORMAL BREATHING PATTERN. absent: Chest Wall Tenderness, Rhonchi, Wheezes - Cardiovascular Exam Cardiovascular Exam: REGULAR RHYTHM, +S1, +S2. absent: JVD, Systolic Murmur - GI/Abdominal Exam GI & Abdominal Exam: Normal Bowel Sounds, Soft, Tenderness - Extremities Exam Extremities exam: Positive for: normal inspection, pedal pulses present. Negative for: calf tenderness, pedal edema, tenderness - Neurological Exam Neurological exam: Alert, Oriented x3 - Psychiatric Exam Psychiatric exam: Normal Affect, Normal Mood - Skin Skin Exam: Normal Color, Warm Results - Vital Signs Recent Vital Signs: Last Vital Signs Temp 98.3 F 08/04/18 07:35 Pulse 84 08/04/18 07:35 Resp 20 08/04/18 07:35 BP 102/65 08/04/18 07:35 Pulse Ox 94 L 08/04/18 07:35 - Labs Result Diagrams: 08/04/18 06:54 08/04/18 06:54 Labs: Laboratory Results - last 24 hr 08/03/18 08/03/18 08/03/18 15:28 15:28 15:28 WBC 10.2 RBC 4.90 Hgb 9.3 L Hct 31.4 L MCV 64.2 L MCH 19.0 L MCHC 29.6 L RDW 19.6 H Plt Count 510 H MPV 7.6 Neut % (Auto) 62.7 Lymph % (Auto) 26.6 [place] % (Auto) 6.0 Eos % (Auto) 3.6 Baso % (Auto) 1.1 Neut # (Auto) 6.4 Lymph # (Auto) 2.7 [place] # (Auto) 0.6 Eos # (Auto) 0.4 Baso # (Auto) 0.1 PT 12.5 H INR 1.1 APTT 29 Sodium 134 Potassium 4.4 Chloride 99 Carbon Dioxide 21 L Anion Gap 18 BUN 19 Creatinine 0.9 Est GFR ( Amer) > 60 Est GFR (Non-Af Amer) > 60 Random Glucose 82 Calcium 9.0 Phosphorus Magnesium Total Bilirubin 0.5 AST 25 ALT 12 L D Alkaline Phosphatase 224 H Total Protein 7.0 Albumin 4.0 Globulin 3.0 Albumin/Globulin Ratio 1.4 Lipase 31 Urine Color Urine Clarity Urine pH Ur Specific [place] Urine Protein Urine Glucose (UA) Urine Ketones Urine Blood Urine Nitrate Urine Bilirubin Urine Urobilinogen Ur Leukocyte Esterase Urine WBC (Auto) Urine RBC (Auto) Urine Bacteria Hyaline Casts Urine Sperm (Auto) Blood Type Antibody Screen 08/03/18 08/04/18 08/04/18 15:28 01:11 06:54 WBC RBC Hgb Hct MCV MCH MCHC RDW Plt Count MPV Neut % (Auto) Lymph % (Auto) [place] % (Auto) Eos % (Auto) Baso % (Auto) Neut # (Auto) Lymph # (Auto) [place] # (Auto) Eos # (Auto) Baso # (Auto) PT INR APTT Sodium Potassium Chloride Carbon Dioxide Anion Gap BUN Creatinine Est GFR ( Amer) Est GFR (Non-Af Amer) Random Glucose Calcium Phosphorus Magnesium Total Bilirubin AST ALT Alkaline Phosphatase Total Protein Albumin Globulin Albumin/Globulin Ratio Lipase Urine Color Yellow Urine Clarity Clear Urine pH 5.0 Ur Specific [place] 1.009 Urine Protein Negative Urine Glucose (UA) Normal Urine Ketones 1+ H Urine Blood Negative Urine Nitrate Negative Urine Bilirubin Negative Urine Urobilinogen Normal Ur Leukocyte Esterase Neg Urine WBC (Auto) 1 Urine RBC (Auto) 1 Urine Bacteria Rare Hyaline Casts 0-2 Urine Sperm (Auto) Rare H Blood Type A POSITIVE A POSITIVE Antibody Screen Negative Negative 08/04/18 08/04/18 08/04/18 06:54 06:54 06:54 WBC 9.7 RBC 4.85 Hgb 9.2 L Hct 30.9 L MCV 63.7 L MCH 19.0 L MCHC 29.8 L RDW 19.9 H Plt Count 479 H MPV 7.2 Neut % (Auto) Lymph % (Auto) [place] % (Auto) Eos % (Auto) Baso % (Auto) Neut # (Auto) Lymph # (Auto) [place] # (Auto) Eos # (Auto) Baso # (Auto) PT 13.2 H INR 1.2 APTT 27 Sodium 133 Potassium 4.4 Chloride 101 Carbon Dioxide 25 Anion Gap 11 BUN 13 Creatinine 0.6 L Est GFR ( Amer) > 60 Est GFR (Non-Af Amer) > 60 Random Glucose 100 D Calcium 8.6 Phosphorus 3.5 Magnesium 1.8 Total Bilirubin AST ALT Alkaline Phosphatase Total Protein Albumin Globulin Albumin/Globulin Ratio Lipase Urine Color Urine Clarity Urine pH Ur Specific [place] Urine Protein Urine Glucose (UA) Urine Ketones Urine Blood Urine Nitrate Urine Bilirubin Urine Urobilinogen Ur Leukocyte Esterase Urine WBC (Auto) Urine RBC (Auto) Urine Bacteria Hyaline Casts Urine Sperm (Auto) Blood Type Antibody Screen - EKG Data EKG Interpreted by: Myself - Imaging and Cardiology Chest x-ray Status: Image reviewed by me (Normal heart size, no infiltrates or effusion, mildly increased lung markings) Assessment & Plan - Assessment and Plan (Free Text) Assessment: Colon cancer: with bowel obstruction for OR today > EKG: NSR, no acute ischemic changes > EXAM: No volume overload, normal cardiac auscultation > VS: normal BP and HR > ECHO: 08/04/18: images directly viewed by me -> Normal LVEF and wall motion, no sig valve disease, Grade 1 diastolic dysfuntion > Labs: mild anemia, normal creat Based on the above findings, absence of CP or CHF sx's and ability to perform >4mets of activity ordinarily without any cardiac sx's patient may proceed with acceptable risk. Routine BP, HR and O2 sat monitoring.
[2018-08-04] MEDS ORDERED: Lidocaine/Epinephrine 1% 1:100000 10 ML IJ ONE ×2 (10:31→14:33)
[2018-08-04] MEDS ORDERED: ceFAZolin 1 gm in NS 1 GM/100 ML BAG IVPB ONE ×4 (10:31→15:16)
[2018-08-04] MEDS ORDERED: Bupivacaine HCl 0.25% PF (10 ml) Inj ONE (10:31)
[2018-08-04] MEDS ORDERED: metroNIDAZOLE IV 500 mg/100 ml 500 MG/100 ML BAG ONE (10:32)
[2018-08-04] MEDS ORDERED: Sodium Chloride 0.9% 20 ML IV ONE (10:32)
[2018-08-04] MEDS ORDERED: Propofol 10 mg/ml Inj (20 ML) ONE (11:13)
[2018-08-04] MEDS ORDERED: Midazolam 2 MG/2 ML VIAL ONE (11:13)
[2018-08-04] MEDS ORDERED: Rocuronium 10 mg/ml (5 ml) ONE ×2 (11:39→12:38)
[2018-08-04] MEDS ORDERED: Succinylcholine Chloride 20 mg/ml Syr (5 ml) IV ONE (11:39)
[2018-08-04] MEDS ORDERED: Bupivacaine HCl 0.5% PF (10 ml) Inj ONE ×2 (12:39→12:40)
[2018-08-04] MEDS ORDERED: HEPARIN-NS 5,000 UNITS/500 ML 0 UNIT/0 ML BAG IV ONE (12:40)
[2018-08-04] MEDS ORDERED: Morphine 4 MG/ML VIAL ONE (14:05)
[2018-08-04] MEDS ORDERED: Bupivacaine Liposomal Inj 20 ml INJ ONE (14:06)
[2018-08-04] MEDS ORDERED: Sodium Chloride 0.9% 40 ML IV ONE (14:33)
[2018-08-04] MEDS ORDERED: Bupivacaine 0.25% 20 ML INJ IJ ONE (14:33)
[2018-08-04] MEDS ORDERED: Neostigmine 1:1000 (1 mg/ml) Inj ONE (15:46)
--- NOTE | 2018-08-04 15:57 | RAD ---
HISTORY: pre-op COMPARISON: Chest x-ray performed 07/29/18. TECHNIQUE: Chest, one view. FINDINGS: Examination limited by habitus. LUNGS: Patchy left lower lobe airspace opacities. Please note that chest x-ray has limited sensitivity for the detection of pulmonary masses. PLEURA: Probable small left pleural effusion. No definite pneumothorax . CARDIOVASCULAR: Heart size appears top normal. No significant atherosclerotic calcification present. OSSEOUS STRUCTURES: Osseous demineralization. Degenerative changes. Acromioclavicular arthropathy. VISUALIZED UPPER ABDOMEN: Elevation of the right hemidiaphragm. OTHER FINDINGS: None. IMPRESSION: Patchy left lower lobe airspace opacities. Correlate clinically for pneumonia. Probable small left pleural effusion. Elevation of the right hemidiaphragm.
--- NOTE | 2018-08-04 16:03 | PCM.SURG1 ---
Surgeon's Initial Post Op Note - Surgeon's Notes Surgeon: Dr. Reynolds Cable Former: YOMI Maxwell Kathryn Fitzgerald D.O PGY4 Type of Anesthesia: General Endo Anesthesia Administered By: Elvis Pre-Operative Diagnosis: Colon Ca Operative Findings: same Post-Operative Diagnosis: same Operation Performed: Robotic assisted Right Hemicolectomy. Liver biopsy Specimen/Specimens Removed: Right colon, Omentum, Liver biopsy Estimated Blood Loss: EBL {In ML}: 10 Blood Products Given: N/A Drains Used: No Drains Post-Op Condition: Good Date of Surgery/Procedure: 08/04/18 Time of Surgery/Procedure: 16:02
[2018-08-04] MEDS: HYDROmorphone 0.5 mg/0.5 ml ISec IVP PRN ×3 (16:44→17:25)
[2018-08-04] MEDS ORDERED: BUPIVACAINE 0.125%/0.9% NACL 600 ML IJ ONE (17:00)
[2018-08-04] MEDS ORDERED: Lactated Ringer's 1,000 ML IV ONE (17:02)
--- NOTE | 2018-08-04 18:39 | CARD ---
APPROVED REPORT Date of service: 08/04/2018 EXAM: Two-dimensional and M-mode echocardiogram with Doppler and color Doppler. Other Information Quality : AverageRhythm : INDICATION Pre-Op RISK FACTORS Smoking 2D DIMENSIONS IVSd0.9 (0.7-1.1cm)LVDd4.5 (3.9-5.9cm) PWd1.0 (0.7-1.1cm)LVDs3.3 (2.5-4.0cm) FS (%) 25.9 %LVEF (%)51.0 (>50%) M-Mode DIMENSIONS Left Atrium (MM)3.90 (2.5-4.0cm)IVSd0.99 (0.7-1.1cm) Aortic Root3.48 (2.2-3.7cm)LVDd4.89 (4.0-5.6cm) Aortic Cusp Exc.2.35 (1.5-2.0cm)PWd0.85 (0.7-1.1cm) FS (%) 34 %LVDs3.23 (2.0-3.8cm) LVEF (%)63 (>50%) Mitral Valve MV E Zlxmwwfu02.9cm/sMV A Lolbfbnu19.0cm/sE/A ratio0.8 TDI Lateral E' Peak V5.64cm/sMedial E' Peak V5.06cm/sE/Lateral E'10.6 E/Medial E'11.8 Tricuspid Valve TR Peak Ldszlmzx120pj/sTR Peak Gr.22mmHg LEFT VENTRICLE The left ventricle is normal size. There is normal left ventricular wall thickness. The left ventricular function is normal. The left ventricular ejection fraction is within the normal range. visually, 65% No regional wall motion abnormalities noted. Transmitral Doppler flow pattern is Grade I-abnormal relaxation pattern. No left ventricle thrombus noted on this study. There is no ventricular septal defect visualized. There is no left ventricular aneurysm. There is no mass noted in the left ventricle. RIGHT VENTRICLE The right ventricle is normal size. There is normal right ventricular wall thickness. The right ventricular systolic function is normal. ATRIA The left atrium size is normal. The right atrium size is normal. Attached to the superior wall of the right atrium, in between the IVC and lateral tricuspid annulus, is a myxomatous appearing mass. It is 2.2 by 2.4 cm. It appears the tech did not foucs on it. Additonal views/and or ABEBA shoudl be considered. The interatrial septum is intact with no evidence for an atrial septal defect. AORTIC VALVE The aortic valve is normal in structure and function. No aortic regurgitation is present. There is no aortic valvular stenosis. There is no aortic valvular vegetation. MITRAL VALVE The mitral valve is normal in structure and function. There is no evidence of mitral valve prolapse. There is no mitral valve stenosis. There is no mitral valve regurgitation noted. TRICUSPID VALVE The tricuspid valve is normal in structure and function. There is mild tricuspid valve regurgitation noted. There is no tricuspid valve prolapse or vegetation. There is no tricuspid valve stenosis. PULMONIC VALVE The pulmonary valve is normal in structure and function. There is no pulmonic valvular regurgitation. There is no pulmonic valvular stenosis. GREAT VESSELS The aortic root is normal in size. The ascending aorta is normal in size. The pulmonary artery is normal. The IVC is normal in size and collapses >50% with inspiration. PERICARDIAL EFFUSION The pericardium appears normal. There is no pleural effusion. <Conclusion> The left ventricular function is normal. Transmitral Doppler flow pattern is Grade I-abnormal relaxation pattern. Normal Doppler. Seen only on sub-ostal view: The right atrium size is normal. Attached to the superior wall of the right atrium, in between the IVC and lateral tricuspid annulus, is a myxomatous appearing mass. It is 2.2 by 2.4 cm. It appears the tech did not foucs on it. Additonal views/and or ABEBA shoudl be considered. Sub-optimal study:
[2018-08-04 19:20] VITALS: RESP 20
--- NOTE | 2018-08-04 19:21 | CARD ---
APPROVED REPORT Date of service: 08/03/2018 EKG Measurement Heart [id number] <Conclusion> Normal sinus rhythm lateral non specific st changes Low voltage QRS Abnormal ECG
[2018-08-04] MEDS: Lactated Ringer's 1,000 ML IV SCH (19:26)
[2018-08-05] MEDS: Lactated Ringer's 1,000 ML IV SCH ×3 (00:06→09:34)
--- NOTE | 2018-08-05 05:04 | OP ---
PROCEDURE DATE: 08/04/2018 PREOPERATIVE DIAGNOSES: 1. Cecal mass, possible adenocarcinoma. 2. Abdominal pain with near intestinal obstruction. 3. Multiple hepatic lesion, possible metastasis. POSTOPERATIVE DIAGNOSES: 1. Cecal mass, possible adenocarcinoma. 2. Abdominal pain with near intestinal obstruction. 3. Multiple hepatic lesion, possible metastasis. PROCEDURES DONE: 1. Robotic right hemicolectomy. 2. Robotic partial omentectomy. 3. Robotic liver biopsy. 4. Bilateral On-Q pain catheter pump placement. SURGEON: Xavier Reynolds MD ASSISTANTS: 1. JENNIFER Maxwell. 2. Olga Luong DO, PGY-4, resident. ANESTHESIA: General endotracheal tube anesthesia ESTIMATED BLOOD LOSS: Around 10 mL. DRAINS: None. PATHOLOGY: The ileum, cecum, ascending colon, and the part of the transverse colon were sent for the pathology. The part of the omentum was also sent for the pathology and intraoperative frozen section was done for the liver lesion. COMPLICATIONS: None. INTRAOPERATIVE FINDINGS: The patient had a large cecal mass as well as the patient also has multiple white color liver lesion and omentum was also thickened and edematous. Intraoperative frozen section for the liver biopsy was suggestive of benign fibrous tissue. DESCRIPTION OF PROCEDURE: On intraoperative step, this is a 62-year-old male who was diagnosed with cecal mass, possible adenocarcinoma with liver, lung, and adrenal metastasis, and the patient was consented for robotic right hemicolectomy with liver biopsy and possible Port-A-Cath placement. The patient was brought to the OR, placed supine on the operating table. After induction of the anesthesia, the abdomen was prepped and draped in the usual sterile fashion. The left upper quadrant incision was made using the VisiPort technique. Peritoneal cavity was entered. Pneumo was created. Another 3-8 mm port was placed in the right flank and right lower quadrant, and the robot was brought in. Camera arm as well as arm 1 and arm 2 was docked. First ileum, cecum, and ascending colon was mobilized. The lesser sac was also mobilized, and the transverse colon was mobilized after dissecting the ligament between the colon and the liver, and after that, the duodenum was identified and the ileum was resected. Transverse colon was resected at the midtransverse colon level and then the mesocolon was resected with JALEEL and a small peritoneal incision was made. Both end of the small bowel as well as the large bowel was brought out and eets-pu-recs anastomosis was done. Proper hemostasis was achieved. An intraoperative firefly was used before anastomosis and after anastomosis, and there was a good blood supply. Anastomosis was not in tension, and it was viable as well as intact. Now the bilateral On-Q pain catheter pump was placed. The umbilical wound was closed in two layers, the fascia with #1 loop PDS as well as 0 Prolene interrupted suture. All the ports were closed in two layers, subcu with 2-0 Vicryl, skin with 4-0 Monocryl, and dry sterile dressing was applied. The patient tolerated the procedure well. Count of instrument and gauze was correct. There was no apparent complication. The patient was extubated to the OR and sent to the postanesthesia care unit in stable condition. During the procedure, the omentectomy was done and also the liver biopsy was done and intraoperative frozen section was suggestive of fibrosis. There is no evidence of cancer and a Port-A-Cath part of the procedure was postponed, and after completion of the procedure, the patient was sent to the postanesthesia care unit in stable condition. Xavier Reynolds MD MTDJennifer
[2018-08-05 07:16] LABS: BASO # 0.1 K/uL (0.0-0.2); BASO % 1.1 % (0.0-2.0); EOS # 0.3 K/uL (0.0-0.7); EOS % 2.7 % (0.0-4.0); HEMOGLOBIN 8.4 g/dL (12.0-18.0); LYMPH # 1.7 K/uL (1.0-4.3); LYMPH % 16.7 % (20.0-40.0); MEAN CELL VOLUME 63.8 fL (80.0-94.0); MEAN CORPUSCULAR HEMOGLOBIN 19.2 pg (27.0-31.0); MEAN CORPUSCULAR HGB CONC 30.1 g/dL (33.0-37.0); MEAN PLATELET VOLUME 7.2 fL (7.2-11.7); MONO # 0.7 K/uL (0.0-0.8); MONO % 7.1 % (0.0-10.0); NEUT # 7.3 K/uL (1.8-7.0); NEUT % 72.4 % (50.0-75.0); NRBC % 0.1 % (0.0-2.0); RBC 4.37 Mil/uL (4.40-5.90); RED CELL DISTRIBUTION WIDTH 19.7 % (11.5-14.5); WHITE BLOOD COUNT 10.1 K/uL (4.8-10.8)
[2018-08-05 07:23] LABS: ALB/GLOB RATIO 1.1 (1.0-2.1); ALBUMIN 2.8 g/dL (3.5-5.0); ALT/SGPT 24 U/L (21-72); AST/SGOT 32 U/L (17-59); BLOOD UREA NITROGEN 6 mg/dL (9-20); CALCIUM 8.1 mg/dl (8.6-10.4); GFR NON-AFRICAN AMERICAN > 60
[2018-08-05] MEDS ORDERED: Pneumococcal 23-Valent Vaccine IM ONE (10:00)
[2018-08-05] MEDS ORDERED: Influenza Vaccine 60 mcg/0.5 mL SYR (4YR UP) IM ONE (10:00)
[2018-08-05] MEDS ORDERED: Enoxaparin 40 mg Syringe SC SCH (10:00)
--- NOTE | 2018-08-05 13:20 | CP.PCM.PN ---
<Olga Luong - Last Filed: 08/05/18 13:16> Subjective - Date & Time of Evaluation Date of Evaluation: 08/05/18 Time of Evaluation: 13:17 - Subjective Subjective: General Surgery - Dr. Reynolds Pt [facility]. Pt is doing well post-operatively. He states that he is hungry. He has been receiving pain mediation around the clock and states his pain is controlled after meds. He denies any Fevers/chills/SOB/chest pain/ Diarrhea/Nausea/Vomiting. Objective - Vital Signs/Intake and Output Vital Signs (last 24 hours): Temp Pulse Resp BP Pulse Ox 97.7 F 88 20 93/63 L 96 08/05/18 07:25 08/05/18 07:25 08/05/18 07:25 08/05/18 07:25 08/05/18 07:25 Intake and Output: 08/05/18 08/05/18 06:59 18:59 Intake Total 800 Output Total 1600 Balance -800 - Medications Medications: Current Medications Acetaminophen (Tylenol 325mg Tab) 650 mg PO Q4 [facility] Last Admin: 08/04/18 19:27 Dose: 650 mg Alprazolam (Xanax) 0.5 mg PO DAILY [facility] Last Admin: 08/05/18 09:28 Dose: 0.5 mg Famotidine (Pepcid) 20 mg IVP DAILY [facility] Last Admin: 08/05/18 09:28 Dose: 20 mg Heparin Sodium (Porcine) (Heparin) 5,000 units SC Q12 [facility] Last Admin: 08/05/18 12:16 Dose: 5,000 units Potassium Chloride/Dextrose/Sod Cl (Potassium Chl 20 Meq In D5-1/2ns) 1,000 mls @ 120 mls/hr IV .Q8H20M [facility] Last Admin: 08/04/18 13:51 Dose: Not Given BUPIVACAINE 0.125%/0.9% NACL (Bupivacaine-Ns 0.125% On-Q Housecalls Nurse) 600 mls @ 4 mls/hr IJ ONCE ONE Stop: 08/10/18 22:59 Lactated Ringer's (Lactated Ringer's) 1,000 mls @ 100 mls/hr IV .Q10H [facility] Last Admin: 08/05/18 09:34 Dose: 100 mls/hr Ibuprofen (Motrin Tab) 600 mg PO TID [facility] Last Admin: 08/05/18 09:27 Dose: 600 mg Morphine Sulfate (Morphine) 2 mg IVP Q4 PRN PRN Reason: Pain, moderate (4-7) Last Admin: 08/05/18 12:19 Dose: 2 mg Ondansetron HCl (Zofran Inj) 4 mg IVP Q4 PRN PRN Reason: Nausea/Vomiting - Labs Labs: 08/05/18 06:54 08/05/18 06:54 PT 13.2 SECONDS (9.7-12.2) H 08/04/18 06:54 INR 1.2 08/04/18 06:54 APTT 27 SECONDS (21-34) 08/04/18 06:54 - Constitutional Appears: No Acute Distress - Head Exam Head Exam: ATRAUMATIC, NORMAL INSPECTION, NORMOCEPHALIC - Eye Exam Eye Exam: Normal appearance - Respiratory Exam Respiratory Exam: NORMAL BREATHING PATTERN. absent: Respiratory Distress - Cardiovascular Exam Cardiovascular Exam: REGULAR RHYTHM - GI/Abdominal Exam GI & Abdominal Exam: Soft, Tenderness (appropriately). absent: Distended, Firm, Guarding, Rigid, Rebound - Neurological Exam Neurological Exam: Alert, Awake, Oriented x3 - Psychiatric Exam Psychiatric exam: Normal Affect, Normal Mood - Skin Skin Exam: Dry, Intact Assessment and Plan - Assessment and Plan (Free Text) Assessment: 62 yo M s/p Robotic assisted Right Hemicolectomy w/ liver bx, POD #1 -Start Clear liquid diet -Encourage OOB to chair, Ambulation -Pain control - Tylenol/Motrin ATC, Morphine PRN for breakthrough pain -Anti-emetics prn -Monitor for bowel function -Encourage Incentive Spirometer -Heparin SQ DVT px Dw Dr Gail Luong PGY4 <Xavier Reynolds - Last Filed: 08/10/18 20:28> Objective - Vital Signs/Intake and Output Vital Signs (last 24 hours): Temp Pulse Resp BP Pulse Ox 98.4 F 97 H 20 100/61 93 L 08/07/18 15:00 08/07/18 15:00 08/07/18 15:00 08/07/18 15:00 08/07/18 15:00 - Labs Labs: 08/07/18 17:27 08/07/18 17:27 PT 13.2 SECONDS (9.7-12.2) H 08/04/18 06:54 INR 1.2 08/04/18 06:54 APTT 27 SECONDS (21-34) 08/04/18 06:54 Attending/Attestation - Attestation I have personally seen and examined this patient.: Yes I have fully participated in the care of the patient.: Yes I have reviewed all pertinent clinical information, including history, physical exam and plan: Yes Notes (Text): Pt was seen and examine at bedside Agree with above note and assessment Pt is c/o lower back pain Abdomen mild distended No bowel functions C.w current mx DVT prophylaxis OOB to walk and SCDs Plan d.w pt in detail Risk and benefit explained in detail.
[2018-08-05] MEDS: Potassium Ch 20mEq in D5-1/2NS 1,000 ML IV SCH ×2 (16:48→19:15)
[2018-08-06] MEDS: Potassium Ch 20mEq in D5-1/2NS 1,000 ML IV SCH ×6 (01:20→20:15)
--- NOTE | 2018-08-06 12:58 | CP.PCM.PN ---
<Samia Fernandez P - Last Filed: 08/06/18 17:27> Subjective - Date & Time of Evaluation Date of Evaluation: 08/06/18 Time of Evaluation: 09:20 - Subjective Subjective: Progress note for Dr. Reynolds. Patient seen and examined at bedside. POD 2 s/p robotic assisted right hemicolectomy and liver biopsy. Patient is tolerating clear diet. Patient has been OOB and using ICS. Reports flatus and denies bowel movement. Objective - Vital Signs/Intake and Output Vital Signs (last 24 hours): Temp Pulse Resp BP Pulse Ox 97.1 F L 80 20 98/64 L 97 08/06/18 07:15 08/06/18 07:15 08/06/18 07:15 08/06/18 07:15 08/06/18 07:15 Intake and Output: 08/06/18 08/06/18 06:59 18:59 Intake Total 1440 Output Total 300 600 Balance 1140 -600 - Medications Medications: Current Medications Acetaminophen (Tylenol 325mg Tab) 650 mg PO Q4 [facility] Last Admin: 08/06/18 09:43 Dose: 650 mg Alprazolam (Xanax) 0.5 mg PO DAILY [facility] Last Admin: 08/06/18 09:43 Dose: 0.5 mg Famotidine (Pepcid) 20 mg IVP DAILY [facility] Last Admin: 08/06/18 09:44 Dose: 20 mg Heparin Sodium (Porcine) (Heparin) 5,000 units SC Q12 [facility] Last Admin: 08/06/18 09:44 Dose: 5,000 units Potassium Chloride/Dextrose/Sod Cl (Potassium Chl 20 Meq In D5-1/2ns) 1,000 mls @ 120 mls/hr IV .Q8H20M [facility] Last Admin: 08/06/18 09:41 Dose: 120 mls/hr BUPIVACAINE 0.125%/0.9% NACL (Bupivacaine-Ns 0.125% On-Q Electronics Technician Apprentice) 600 mls @ 4 mls/hr IJ ONCE ONE Stop: 08/10/18 22:59 Ibuprofen (Motrin Tab) 600 mg PO TID [facility] Last Admin: 08/06/18 09:42 Dose: 600 mg Ondansetron HCl (Zofran Inj) 4 mg IVP Q4 PRN PRN Reason: Nausea/Vomiting Tramadol HCl (Ultram) 50 mg PO TID PRN PRN Reason: Pain, moderate (4-7) - Labs Labs: 08/05/18 06:54 08/05/18 06:54 PT 13.2 SECONDS (9.7-12.2) H 08/04/18 06:54 INR 1.2 08/04/18 06:54 APTT 27 SECONDS (21-34) 08/04/18 06:54 - Constitutional Appears: Non-toxic, No Acute Distress - Head Exam Head Exam: ATRAUMATIC, NORMOCEPHALIC - Eye Exam Eye Exam: Normal appearance - ENT Exam ENT Exam: Mucous Membranes Moist - Respiratory Exam Respiratory Exam: NORMAL BREATHING PATTERN - GI/Abdominal Exam GI & Abdominal Exam: Soft, Tenderness (mild tenderness to incision sites) - Neurological Exam Neurological Exam: Alert, Awake, Oriented x3 - Psychiatric Exam Psychiatric exam: Normal Affect, Normal Mood - Skin Skin Exam: Dry, Normal Color, Warm Assessment and Plan - Assessment and Plan (Free Text) Assessment: 62 year old male POD 2 s/p Robotic assisted Right Hemicolectomy and Liver biopsy Plan: -CLD -Encourage OOB -Encourage ICS use -monitor BM Further recs as per Dr. Reynolds. Samia Fernandez, PGY-1. <Xavier Reynolds - Last Filed: 08/10/18 20:29> Objective - Vital Signs/Intake and Output Vital Signs (last 24 hours): Temp Pulse Resp BP Pulse Ox 98.4 F 97 H 20 100/61 93 L 08/07/18 15:00 08/07/18 15:00 08/07/18 15:00 08/07/18 15:00 08/07/18 15:00 - Labs Labs: 08/07/18 17:27 08/07/18 17:27 PT 13.2 SECONDS (9.7-12.2) H 08/04/18 06:54 INR 1.2 08/04/18 06:54 APTT 27 SECONDS (21-34) 08/04/18 06:54 Attending/Attestation - Attestation I have personally seen and examined this patient.: Yes I have fully participated in the care of the patient.: Yes I have reviewed all pertinent clinical information, including history, physical exam and plan: Yes Notes (Text): Pt was seen and examine at bedside Agree with above note and assessment Lower back pain is improved Abdomen soft, NT, ND No Gas or BM C.w current mx DVT prophylaxis OOB to walk and SCDs Plan d.w pt in detail
[2018-08-07] MEDS: Potassium Ch 20mEq in D5-1/2NS 1,000 ML IV SCH (02:53)
[2018-08-07] MEDS ORDERED: BUPIVACAINE 0.125%/0.9% NACL 600 ML IJ ONE (08:09)
--- NOTE | 2018-08-07 08:50 | CP.PCM.PN ---
<EllisJeannie - Last Filed: 08/07/18 08:56> Subjective - Date & Time of Evaluation Date of Evaluation: 08/07/18 Time of Evaluation: 07:10 - Subjective Subjective: General Surgery Dr. Reynolds Pt seen and examined @bedside. No acute events overnight. Pt reports pain management. denies F/C, N/V, D/C. tolerating diet. (+)Flatus (-)BM. Objective - Vital Signs/Intake and Output Vital Signs (last 24 hours): Temp Pulse Resp BP Pulse Ox 97.9 F 91 H 20 109/71 92 L 08/06/18 23:24 08/06/18 23:24 08/06/18 23:24 08/06/18 23:24 08/06/18 23:24 Intake and Output: 08/07/18 08/07/18 06:59 18:59 Intake Total 2040 Output Total 1200 Balance 840 - Medications Medications: Current Medications Acetaminophen (Tylenol 325mg Tab) 650 mg PO Q4 [facility] Last Admin: 08/07/18 08:08 Dose: 650 mg Alprazolam (Xanax) 0.5 mg PO DAILY [facility] Last Admin: 08/06/18 09:43 Dose: 0.5 mg Famotidine (Pepcid) 20 mg IVP DAILY [facility] Last Admin: 08/06/18 09:44 Dose: 20 mg Heparin Sodium (Porcine) (Heparin) 5,000 units SC Q12 [facility] Last Admin: 08/06/18 21:21 Dose: 5,000 units Potassium Chloride/Dextrose/Sod Cl (Potassium Chl 20 Meq In D5-1/2ns) 1,000 mls @ 120 mls/hr IV .Q8H20M [facility] Last Admin: 08/07/18 02:53 Dose: 120 mls/hr BUPIVACAINE 0.125%/0.9% NACL (Bupivacaine-Ns 0.125% On-Q Electronic Development Technician) 600 mls @ 4 mls/hr IJ ONCE ONE Stop: 08/10/18 22:59 Ibuprofen (Motrin Tab) 600 mg PO TID [facility] Last Admin: 08/06/18 19:32 Dose: 600 mg Ondansetron HCl (Zofran Inj) 4 mg IVP Q4 PRN PRN Reason: Nausea/Vomiting Tramadol HCl (Ultram) 50 mg PO TID PRN PRN Reason: Pain, moderate (4-7) - Labs Labs: 08/05/18 06:54 08/05/18 06:54 PT 13.2 SECONDS (9.7-12.2) H 08/04/18 06:54 INR 1.2 08/04/18 06:54 APTT 27 SECONDS (21-34) 08/04/18 06:54 - Constitutional Appears: Non-toxic, No Acute Distress - Head Exam Head Exam: NORMAL INSPECTION - Eye Exam Eye Exam: Normal appearance - ENT Exam ENT Exam: Mucous Membranes Moist - Respiratory Exam Respiratory Exam: NORMAL BREATHING PATTERN. absent: Accessory Muscle Use, Respiratory Distress - Cardiovascular Exam Cardiovascular Exam: REGULAR RHYTHM. absent: Bradycardia, Tachycardia - GI/Abdominal Exam GI & Abdominal Exam: Soft, Tenderness (appropriate TTP). absent: Distended, Guarding Additional comments: dressing c/d/i onQ empty (replaced) - Extremities Exam Extremities Exam: Normal Capillary Refill - Back Exam Back Exam: NORMAL INSPECTION - Neurological Exam Neurological Exam: Alert, Awake, Oriented x3 - Psychiatric Exam Psychiatric exam: Normal Affect, Normal Mood - Skin Skin Exam: Dry, Intact, Normal Color, Warm Assessment and Plan - Assessment and Plan (Free Text) Assessment: 62 y/o M POD#3 s/p Robotic assisted Right Hemicolectomy and Liver biopsy Plan: - monitor bowel fxn - advance to FLD - d/c IVF; hep-lock - replace OnQ - PO pain management - encourage OOB to chair/Amb/IS use - DVT PPx Pt discussed w/ Dr. Gail Corral DO PGY3 <Xavier Reynolds B - Last Filed: 08/10/18 20:30> Objective - Vital Signs/Intake and Output Vital Signs (last 24 hours): Temp Pulse Resp BP Pulse Ox 98.4 F 97 H 20 100/61 93 L 08/07/18 15:00 08/07/18 15:00 08/07/18 15:00 08/07/18 15:00 08/07/18 15:00 - Labs Labs: 08/07/18 17:27 08/07/18 17:27 PT 13.2 SECONDS (9.7-12.2) H 08/04/18 06:54 INR 1.2 08/04/18 06:54 APTT 27 SECONDS (21-34) 08/04/18 06:54 Attending/Attestation - Attestation I have personally seen and examined this patient.: Yes I have fully participated in the care of the patient.: Yes I have reviewed all pertinent clinical information, including history, physical exam and plan: Yes Notes (Text): Pt was seen and examine at bedside Agree with above note and assessment Pt is improving clinically Passing gas, No BMs DVT prophylaxis OOB to walk and SCDs Plan d.w pt in detail
[2018-08-07 16:28] VITALS: BP 100/61; PULSE 97; TEMP 98.4; O2SAT 93
[2018-08-07 17:32] LABS: HEMOGLOBIN 8.5 g/dL (12.0-18.0); MEAN CELL VOLUME 64.9 fL (80.0-94.0); MEAN CORPUSCULAR HEMOGLOBIN 18.8 pg (27.0-31.0); MEAN PLATELET VOLUME 7.7 fL (7.2-11.7); RBC 4.5 Mil/uL (4.40-5.90); RED CELL DISTRIBUTION WIDTH 20.2 % (11.5-14.5); WHITE BLOOD COUNT 11.2 K/uL (4.8-10.8)
[2018-08-07 18:00] LABS: BLOOD UREA NITROGEN 7 mg/dL (9-20); GFR NON-AFRICAN AMERICAN > 60
--- NOTE | 2018-08-07 18:28 | CP.PCM.DIS ---
Provider - Provider Date of Admission: 08/03/18 15:38 Attending physician: Xavier Reynolds MD Consults: 08/03/18 14:52 Physician Consult Routine Comment: Consulting Provider: Param Ricks Consulting Physician: Param Ricks Reason for Consult: preop Time Spent in preparation of Discharge (in minutes): 45 Hospital Course - Lab Results Lab Results: Most Recent Lab Values WBC 11.2 K/uL (4.8-10.8) H 08/07/18 17:27 RBC 4.50 Mil/uL (4.40-5.90) 08/07/18 17:27 Hgb 8.5 g/dL (12.0-18.0) L 08/07/18 17:27 Hct 29.2 % (35.0-51.0) L 08/07/18 17:27 MCV 64.9 fL (80.0-94.0) L 08/07/18 17:27 MCH 18.8 pg (27.0-31.0) L 08/07/18 17:27 MCHC 29.0 g/dL (33.0-37.0) L 08/07/18 17:27 RDW 20.2 % (11.5-14.5) H 08/07/18 17:27 Plt Count 442 K/uL (130-400) H 08/07/18 17:27 MPV 7.7 fL (7.2-11.7) 08/07/18 17:27 Neut % (Auto) 72.4 % (50.0-75.0) 08/05/18 06:54 Lymph % (Auto) 16.7 % (20.0-40.0) L 08/05/18 06:54 [place] % (Auto) 7.1 % (0.0-10.0) 08/05/18 06:54 Eos % (Auto) 2.7 % (0.0-4.0) 08/05/18 06:54 Baso % (Auto) 1.1 % (0.0-2.0) 08/05/18 06:54 Neut # (Auto) 7.3 K/uL (1.8-7.0) H 08/05/18 06:54 Lymph # (Auto) 1.7 K/uL (1.0-4.3) 08/05/18 06:54 [place] # (Auto) 0.7 K/uL (0.0-0.8) 08/05/18 06:54 Eos # (Auto) 0.3 K/uL (0.0-0.7) 08/05/18 06:54 Baso # (Auto) 0.1 K/uL (0.0-0.2) 08/05/18 06:54 Differential Comment 08/04/18 06:54 PT 13.2 SECONDS (9.7-12.2) H 08/04/18 06:54 INR 1.2 08/04/18 06:54 APTT 27 SECONDS (21-34) 08/04/18 06:54 Sodium 136 mmol/L (132-148) 08/07/18 17:27 Potassium 4.2 mmol/L (3.6-5.2) 08/07/18 17:27 Chloride 107 mmol/L (98-107) 08/07/18 17:27 Carbon Dioxide 23 mmol/L (22-30) 08/07/18 17:27 Anion Gap 11 (10-20) 08/07/18 17:27 BUN 7 mg/dL (9-20) L 08/07/18 17:27 Creatinine 0.6 mg/dL (0.8-1.5) L 08/07/18 17:27 Est GFR ( Amer) > 60 08/07/18 17:27 Est GFR (Non-Af Amer) > 60 08/07/18 17:27 Random Glucose 111 mg/dL (75-110) H 08/07/18 17:27 Calcium 8.0 mg/dl (8.6-10.4) L 08/07/18 17:27 Phosphorus 3.9 mg/dL (2.5-4.5) 08/05/18 06:54 Magnesium 1.6 mg/dL (1.6-2.3) 08/07/18 17:27 Total Bilirubin 0.3 mg/dL (0.2-1.3) 08/05/18 06:54 AST 32 U/L (17-59) 08/05/18 06:54 ALT 24 U/L (21-72) 08/05/18 06:54 Alkaline Phosphatase 175 U/L (38-126) H D 08/05/18 06:54 Total Protein 5.2 g/dL (6.3-8.3) L 08/05/18 06:54 Albumin 2.8 g/dL (3.5-5.0) L D 08/05/18 06:54 Globulin 2.5 gm/dL (2.2-3.9) 08/05/18 06:54 Albumin/Globulin Ratio 1.1 (1.0-2.1) 08/05/18 06:54 Lipase 31 U/L (23-300) 08/03/18 15:28 Urine Color Yellow (YELLOW) 08/04/18 01:11 Urine Clarity Clear (Clear) 08/04/18 01:11 Urine pH 5.0 (5.0-8.0) 08/04/18 01:11 Ur Specific [place] 1.009 (1.003-1.030) 08/04/18 01:11 Urine Protein Negative mg/dL (NEGATIVE) 08/04/18 01:11 Urine Glucose (UA) Normal mg/dL (Normal) 08/04/18 01:11 Urine Ketones 1+ mg/dL (NEGATIVE) H 08/04/18 01:11 Urine Blood Negative (NEGATIVE) 08/04/18 01:11 Urine Nitrate Negative (NEGATIVE) 08/04/18 01:11 Urine Bilirubin Negative (NEGATIVE) 08/04/18 01:11 Urine Urobilinogen Normal mg/dL (0.2-1.0) 08/04/18 01:11 Ur Leukocyte Esterase Neg Ira/uL (Negative) 08/04/18 01:11 Urine WBC (Auto) 1 /hpf (0-5) 08/04/18 01:11 Urine RBC (Auto) 1 /hpf (0-3) 08/04/18 01:11 Urine Bacteria Rare (<OCC) 08/04/18 01:11 Hyaline Casts 0-2 /lpf (0-2) 08/04/18 01:11 Urine Sperm (Auto) Rare /hpf (NONE) H 08/04/18 01:11 Blood Type A POSITIVE 08/04/18 06:54 Antibody Screen Negative 08/04/18 06:54 - Hospital Course Hospital Course: 62M w/ PMHx of COPD and likely metastatic colon ca diagnosed by colonoscopy on 07/2018 initially presented o the ED on 3/3/19 c/o abd pain. Pain started ~3mons [employer], associated w/ decreased appetite and >20lb weight loss. Pt had CT A/P in 07/2018 which was abnormal and pt was referred to GI for colonoscopy. 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 At that time, pt was referred to general surgery. While in house patient underwent Robotic- assisted laparoscopic Right hemicolectomy and liver biopsy. Post operatively patient recovered well, return of bowel function and pain became controlled w/ PO analgesia. on 08/07/18 patient continued to express wanting to go home and spend time with his family. Laboratory values and vital signs deemed stable and cleared for discharge home w/ close follow up in clinic. for details of hospital stay, please refer to detailed notes throughout hospital stay. Discharge Exam - Head Exam Head Exam: NORMAL INSPECTION - Eye Exam Eye Exam: EOMI. absent: Scleral icterus - ENT Exam ENT Exam: Mucous Membranes Dry, Mucous Membranes Moist - Respiratory Exam Respiratory Exam: NORMAL BREATHING PATTERN. absent: Accessory Muscle Use, Respiratory Distress - Cardiovascular Exam Cardiovascular Exam: REGULAR RHYTHM. absent: Bradycardia, Tachycardia - GI/Abdominal Exam GI & Abdominal Exam: Soft, Tenderness (mild tenderness around incisions). absent: Distended, Firm, Guarding Additional comments: dressings C/D/I no strikethrough - Neurological Exam Neurological exam: Alert, Oriented x3 - Psychiatric Exam Psychiatric exam: Normal Affect - Skin Skin Exam: Intact, Warm Discharge Plan - Discharge Medications Prescriptions: oxyCODONE/Acetaminophen [Percocet 5/325 mg Tab] 1 ea PO Q6H PRN #20 tab PRN Reason: Pain, Moderate (4-7) Sennosides/Docusate Sodium [Docusate Sodium & Senna 50 mg-8.6 mg] 1 tab PO BID #20 tab - Follow Up Plan Condition: STABLE Disposition: HOME/ ROUTINE Additional Instructions: Keep Bandages on until Thursday 08/10. Cleared to take a shower on Thursday 08/10. (do not shower until Saturday). Steri-stirps remain over the incision, do not remove- they will fall off on their own. Do not soak in bath or go swimming in ocean. no heavy lifting more than 15lbs for 4-6 weeks Take medications as prescribed. If fever > 100.4 take over the counter tylenol. if fever persists to to the ER. follow up in office w/ Dr. Reynolds within 1 week. Referrals: Xavier Reynolds MD [Staff Provider] - 1 Week (call to make an appointment for follow up)
[2018-08-07 20:15] LABS: EOS % 3.5 % (0.0-4.0); LYMPH % 27.4 % (20.0-40.0); MONO % 5.9 % (0.0-10.0); NEUT % 62.5 % (50.0-75.0)
[2018-08-07 20:16] LABS: BASO % 0.7 % (0.0-2.0); EOS # 0.4 K/uL (0.0-0.7); LYMPH # 3.1 K/uL (1.0-4.3); MONO # 0.7 K/uL (0.0-0.8)
[2018-08-08] MEDS ORDERED: Magnesium Oxide 400 mg Tab UD PO ONE (18:12)
== END 2018-08-07 21:00 | disposition home or self-care (01) | DRG 330 ==
LOC: C.ER 13:37 → C.9E 15:38 → C.3T 16:43 → C.9E 16:51 → C.3T 18:34 → C.6T 08-04 18:52
PROVIDERS: ADMIT Surgery Surgical Critical Care; ATTEND Surgery Surgical Critical Care
PROC: 0DBU4ZZ Excision of Omentum, Percutaneous Endoscopic Approach (ICD-10-PCS; 2018-08-04)
PROC: 0FB04ZX Excision of Liver, Percutaneous Endoscopic Approach, Diagnostic (ICD-10-PCS; 2018-08-04)
PROC: 0DTF4ZZ Resection of Right Large Intestine, Percutaneous Endoscopic Approach (ICD-10-PCS; principal; 2018-08-04 11:00)
DX: C78.5 Secondary malignant neoplasm of large intestine and rectum (principal); K56.609 Unspecified intestinal obstruction, unspecified as to partial versus complete obstruction; C34.90 Malignant neoplasm of unspecified part of unspecified bronchus or lung; F17.210 Nicotine dependence, cigarettes, uncomplicated; J44.9 Chronic obstructive pulmonary disease, unspecified